=== PATIENT | female | born 1995 | race Caucasian/White ===

== ENCOUNTER 2017-11-09 10:30 | Outpatient (RCR) | payer OTHER, SELFPAY | END 2017-11-09 17:08 | disposition home or self-care (01) | LOC: PT 10:30 | PROVIDERS: Family Provider Internal Medicine Adolescent Medicine; PCP Internal Medicine Adolescent Medicine; Visit Provider Internal Medicine Adolescent Medicine | DX: M54.5 Low back pain (principal) | CPT/HCPCS: 97033; 97110; 97163 ==

== ENCOUNTER → 2018-07-26 15:41 | Outpatient (CLI) | payer BC, MEDICAID, SELFPAY ==
[2018-07-26 16:22] LABS: Basophils # 0.1 K/mm3 (0-0.2); Basophils % 0.8 % (0.1-2.0); Eosinophils # 0.1 K/mm3 (0.0-0.4); Eosinophils % 1.7 % (0.1-12.0); Hematocrit 37.5 % (37.0-47.0); Hemoglobin 12.3 g/dL (12.2-16.2); Lymphocytes % 25.1 % (10-50); Mean Corpuscular HGB Conc 32.7 g/dL (31.8-35.4); Mean Corpuscular Hemoglobin 29.8 pg (27.0-31.2); Mean Platelet Volume 7.9 fl (7.4-10.4); Monocytes # 0.5 K/mm3 (0.1-1.0); Monocytes % 6.2 % (1.7-9.3); Neutrophils # 5.2 K/mm3 (1.8-7.8); Neutrophils % 66.2 % (37.0-80.0); Platelet Count 393 K/mm3 (142-424); Red Blood Count 4.12 M/mm3 (4.20-5.40); Red Cell Distribution Width 13.1 % (11.5-17.5); White Blood Count 7.9 K/mm3 (4.8-10.8)
[2018-07-26 17:36] LABS: Alanine Aminotransferase 59 U/L (12-78); Albumin Level 3.6 gm/dL (3.4-5.0); Alkaline Phosphatase 78 U/L (46-116); Aspartate Amino Transferase 23 U/L (15-37); Bilirubin,Total 0.2 mg/dL (0.2-1.0); Blood Urea Nitrogen 14 mg/dL (7-18); Calcium 9.2 mg/dL (8.5-10.1); Carbon Dioxide 24 mmol/L (21.0-32.0); Chloride 104 mmol/L (98-107); Creatinine,Serum 0.52 mg/dL (0.55-1.02); Estimated Glomerular Filt Rate 147 ml/min (>60); Free Thyroxine Index 1.8 ug/dL (5.93-13.13); GFR (African American) 178 ML/MIN (>60); Globulin 3.7 gm/dl (1.3-3.2); Glucose 83 mg/dL (74-106); Sodium 139 mmol/L (136-145); Thyroid Stimulating Hormone 1.75 uIU/ml (0.358-3.740); Total Protein,Serum 7.3 gm/dL (6.4-8.2); Triiodothryronine (T3) Uptake 36 % (31-39)
[2018-07-29 03:44] LABS: Triiodothyronine (T3) Free 2.7 pg/mL (2.0-4.4)
== END ==
PROVIDERS: Visit Provider Nurse Practitioner Obstetrics & Gynecology
DX: R53.82 Chronic fatigue, unspecified (principal); R63.5 Abnormal weight gain
CPT/HCPCS: 36415; 80053; 84436; 84443; 84479; 84481; 85025

== ENCOUNTER → 2019-03-07 16:52 | Outpatient (CLI) | payer BC, OTHER, SELFPAY ==
[2019-03-07 17:26] LABS: Basophils % 0.3 % (0.1-2.0); Eosinophils # 0.1 K/mm3 (0.0-0.4); Eosinophils % 0.9 % (0.1-12.0); Hematocrit 35.2 % (37.0-47.0); Hemoglobin 11.5 g/dL (12.2-16.2); Lymphocytes # 1.3 K/mm3 (0.7-4.5); Lymphocytes % 13.2 % (10-50); Mean Corpuscular HGB Conc 32.8 g/dL (31.8-35.4); Mean Corpuscular Hemoglobin 31.2 pg (27.0-31.2); Mean Platelet Volume 8.5 fl (7.4-10.4); Monocytes # 0.5 K/mm3 (0.1-1.0); Neutrophils % 80.5 % (37.0-80.0); Platelet Count 315 K/mm3 (142-424); Red Blood Count 3.71 M/mm3 (4.20-5.40); Red Cell Distribution Width 13.3 % (11.5-17.5)
[2019-03-09 07:35] LABS: HIV Screen 4th Generation wRfx Non Reactive (Non Reactive); Hepatitis B Surface Antigen Negative (Negative); Hepatitis C Antibody 0.1 s/co ratio (0.0-0.9)
[2019-03-10 18:47] LABS: Rapid Plasma Reagin Ab Titer Non Reactive (NonRea<1:1); Rubella Antibodies, IgG 2.17 index (Immune >0.99)
== END ==
PROVIDERS: Visit Provider Nurse Practitioner Obstetrics & Gynecology
DX: Z34.90 Encounter for supervision of normal pregnancy, unspecified, unspecified trimester (principal)
CPT/HCPCS: 36415; 85025; 86592; 86703; 86762; 86850; 87340; 87380; G0432

== ENCOUNTER → 2019-03-30 12:51 | Outpatient (CLI) | payer BC, OTHER, SELFPAY ==
--- NOTE | 2019-03-30 12:53 | US_ITS ---
PROCEDURE: US OB /MATERNAL DETAIL CLINICAL INDICATION: US OB Complete COMPARISON: OBTV US OB transvaginal from 12/25/2018 FINDINGS: Single viable intrauterine gestation. Cephalic position. Placenta: Anteriorplacenta grade 1. There is average amount fluid. The cervix appears satisfactory. Closed and measuring 3 cm in length. Complete survey performed and was unremarkable on the submitted images as in PACS. No discrete anomalies identified on survey imaging by technologist. Active fetus. Three-vessel cord with satisfactory umbilical cord insertion. 4- chamber heart noted. Survey of brain & ventricles Unremarkable. Face and neck survey unremarkable. Diaphragm and chest views unremarkable. Abdomen: Both kidneys noted and unremarkable. Stomach noted and satisfactory. Spine: Survey of the spine satisfactory with no anomalies identified nor imaged. Both arms and legs noted. Amniotic Fluid: Adequate. Maternal adnexa: No significant findings. Measurements: Average ultrasound age 19 weeks 6 days. Gestational Age 19 weeks 5 days Estimated due date by ultrasound age 0408/18/2019. Estimated weight 315.2 ggrams. Weeks-days BPD = 19-6 OFD = 19-5 HC = 19-0 AC = 19-4 FL = 20-4 Growth Percentile= 52 percentile% Heart Rate = 153 bpm Cerebellum = 20-1 Humerus = 20-1 HC/AC is 1.15 CI is 0.81 FL/BPD is 0.73 FL/AC is 0.24 IMPRESSION: There is a single live fetus which is in cephalic presentation with an average ultrasound age of 19 weeks 6 days. All parameters correlate with no obvious anomalies. Please see above for detail Dictated by: Aaron Walters MD 03/30/2019 18:05 Electronically signed by Aaron Walters MD in [place] 03/30/2019 18:05
== END ==
PROVIDERS: PCP Internal Medicine Adolescent Medicine; Visit Provider Nurse Practitioner Obstetrics & Gynecology
DX: Z36.0 Encounter for antenatal screening for chromosomal anomalies (principal)
CPT/HCPCS: 76811

== ENCOUNTER → 2019-05-15 07:55 | Outpatient (CLI) | payer BC, OTHER, SELFPAY ==
[2019-05-15 08:35] LABS: Glucose,Fasting 90 mg/dL (60-105)
[2019-05-15 09:57] LABS: Glucose 1 Hour 148 mg/dL (74-106)
== END ==
PROVIDERS: Visit Provider Nurse Practitioner Obstetrics & Gynecology
DX: Z34.90 Encounter for supervision of normal pregnancy, unspecified, unspecified trimester (principal)
CPT/HCPCS: 36415; 82951

== ENCOUNTER → 2019-05-22 07:56 | Outpatient (CLI) | payer BC, OTHER, SELFPAY ==
[2019-05-22 08:27] LABS: Glucose,Fasting 86 mg/dL (60-105)
[2019-05-22 09:57] LABS: Glucose 1 Hour 127 mg/dL (74-106)
[2019-05-22 10:54] LABS: Glucose 2 Hour 110 mg/dL (74-106)
[2019-05-22 12:09] LABS: Glucose 3 Hour 102 mg/dL (74-106)
== END ==
PROVIDERS: Visit Provider Nurse Practitioner Obstetrics & Gynecology
DX: Z34.90 Encounter for supervision of normal pregnancy, unspecified, unspecified trimester (principal)
CPT/HCPCS: 36415; 82951

== ENCOUNTER 2019-06-01 14:41 | Outpatient (CLI) | payer BC, OTHER, SELFPAY ==
[2019-06-01 14:51] VITALS: BMI 34.2
[2019-06-01 15:00] VITALS: BP 111/55; PULSE 84; RESP 20; TEMP 36.7; O2SAT 100; BMI 36.3
[2019-06-01 15:01] LABS: Microscopic, Urine URINE MICROSCOPIC (MICROSCOPIC)
[2019-06-01 15:23] LABS: Appearance,Urine SL CLOUDY (Clear); Bilirubin,Urine Negative (Negative); Blood, Urine Negative (Negative); Color,Urine YELLOW (Yellow); Glucose,Urine (UA) Negative (Negative); Ketones,Urine Negative (Negative); Leukocyte Esterase,Urine 1+ (Negative); Nitrate,Urine Negative (Negative); Protein,Urine Negative (Negative); Specific Gravity, Urine 1.025 (1.005-1.030); Urobilinogen,Urine 0.2 EU/dl (0.2)
[2019-06-01 15:34] LABS: Fetal Membrane Rupture (Rapid) Negative (Negative)
[2019-06-01 15:51] LABS: Bacteria,Urine Trace /lpf
[2019-06-01 15:52] LABS: Amphetamine/Metha Screen,Urine Negative ng/mL (<1000); Barbiturates Screen,Urine Negative ng/mL (<200); Benzodiazepines Screen,Urine Negative ng/mL (<200); Cannabinoid Screen,Urine Negative ng/mL (<50); Cocaine Screen,Urine Negative ng/mL (<300); Methadone Screen,Urine Negative ng/mL (<300); Opiate Screen,Urine Negative ng/mL (<300); Phencyclidine Screen,Urine Negative ng/mL (<25)
[2019-06-01 15:57] LABS: Fetal Fibronectin (Rapid) Negative (Negative)
== END 2019-06-01 17:20 | disposition home or self-care (01) ==
LOC: OBOUT 14:42 → OB 14:44
PROVIDERS: PCP Internal Medicine Adolescent Medicine; Visit Provider Nurse Practitioner Obstetrics & Gynecology
DX: O47.03 False labor before 37 completed weeks of gestation, third trimester (principal); Z3A.28 28 weeks gestation of pregnancy; R11.2 Nausea with vomiting, unspecified
CPT/HCPCS: 59025; 80305; 81001; 82731; 84112; 87086; 96365; G0463

== ENCOUNTER 2019-07-09 16:07 | Outpatient (CLI) | payer BC, OTHER, SELFPAY ==
[2019-07-09 16:25] VITALS: BMI 38.6
[2019-07-09 16:27] VITALS: BP 117/73; PULSE 105; RESP 20; TEMP 36.6; O2SAT 96; BMI 38.6
[2019-07-09 16:34] LABS: Microscopic, Urine URINE MICROSCOPIC (MICROSCOPIC)
[2019-07-09 16:44] LABS: Appearance,Urine CLEAR (Clear); Bilirubin,Urine Negative (Negative); Blood, Urine 2+ (Negative); Color,Urine YELLOW (Yellow); Glucose,Urine (UA) Negative (Negative); Ketones,Urine Negative (Negative); Leukocyte Esterase,Urine 1+ (Negative); Nitrate,Urine Negative (Negative); PH,Urine 6.5 (5.0-8.5); Protein,Urine Negative (Negative); Specific Gravity, Urine 1.025 (1.005-1.030); Urobilinogen,Urine 0.2 EU/dl (0.2)
[2019-07-09 16:55] LABS: Bacteria,Urine 2+ /lpf; Mucus,Urine 1+ /lpf; Squamous Epithelial Cell,Urine 20-50 #/hpf (0-5)
[2019-07-09 16:58] LABS: Benzodiazepines Screen,Urine Negative ng/ml (<200)
[2019-07-09 16:59] LABS: Amphetamine/Metha Screen,Urine Negative ng/ml (<1000)
[2019-07-09 17:00] LABS: Barbiturates Screen,Urine Negative ng/ml (<200); Cannabinoid Screen,Urine Negative ng/ml (<50)
[2019-07-09 17:01] LABS: Cocaine Screen,Urine Negative ng/ml (<300); Methadone Screen,Urine Negative ng/ml (<300)
[2019-07-09 17:02] LABS: Opiate Screen,Urine Negative ng/ml (<300)
[2019-07-09 17:03] LABS: Phencyclidine Screen,Urine Negative ng/ml (<25)
== END 2019-07-09 17:15 | disposition home or self-care (01) ==
LOC: OBOUT 16:11 → OB 16:21
PROVIDERS: PCP Internal Medicine Adolescent Medicine; Visit Provider Nurse Practitioner Obstetrics & Gynecology
DX: O47.03 False labor before 37 completed weeks of gestation, third trimester (principal); Z3A.34 34 weeks gestation of pregnancy
CPT/HCPCS: 59025; 80305; 81001; 87086; G0463

== ENCOUNTER 2019-07-16 02:47 | Outpatient (CLI) | payer BC, OTHER, SELFPAY ==
[2019-07-16 02:57] VITALS: BMI 37.5
[2019-07-16 03:07] VITALS: BP 119/51; PULSE 104; RESP 18; TEMP 36.6; O2SAT 96; BMI 37.5
[2019-07-16 04:26] LABS: Microscopic, Urine URINE MICROSCOPIC (MICROSCOPIC)
[2019-07-16 04:30] LABS: Appearance,Urine SL CLOUDY (Clear); Bilirubin,Urine Negative (Negative); Blood, Urine 3+ (Negative); Color,Urine YELLOW (Yellow); Glucose,Urine (UA) Negative (Negative); Ketones,Urine Negative (Negative); Leukocyte Esterase,Urine 1+ (Negative); Nitrate,Urine Negative (Negative); PH,Urine 6.5 (5.0-8.5); Protein,Urine Negative (Negative); Specific Gravity, Urine 1.025 (1.005-1.030); Urobilinogen,Urine 0.2 EU/dl (0.2)
[2019-07-16 04:44] LABS: Barbiturates Screen,Urine Negative ng/ml (<200)
[2019-07-16 04:45] LABS: Amphetamine/Metha Screen,Urine Negative ng/ml (<1000); Benzodiazepines Screen,Urine Negative ng/ml (<200)
[2019-07-16 04:46] LABS: Cannabinoid Screen,Urine Negative ng/ml (<50)
[2019-07-16 04:47] LABS: Cocaine Screen,Urine Negative ng/ml (<300); Methadone Screen,Urine Negative ng/ml (<300)
[2019-07-16 04:48] LABS: Opiate Screen,Urine Negative ng/ml (<300)
[2019-07-16 04:49] LABS: Phencyclidine Screen,Urine Negative ng/ml (<25)
[2019-07-16 04:51] LABS: RBC,Urine 20-50 #/hpf (0-3); Squamous Epithelial Cell,Urine 20-50 #/hpf (0-5); WBC,Urine 20-50 #/hpf (0-3)
== END 2019-07-16 05:45 | disposition home or self-care (01) ==
LOC: OBOUT 02:49 → OB 02:53
PROVIDERS: PCP Internal Medicine Adolescent Medicine; Visit Provider Nurse Practitioner Obstetrics & Gynecology
DX: O47.03 False labor before 37 completed weeks of gestation, third trimester (principal); Z3A.35 35 weeks gestation of pregnancy
CPT/HCPCS: 59025; 80305; 81001; 87086; 96365; 96367; 96372; G0463

== ENCOUNTER 2019-07-16 20:38 | Inpatient (IN) ==
[2019-07-16 22:15] LABS: Amphetamine/Metha Screen,Urine Negative ng/ml (<1000)
[2019-07-16 22:16] LABS: Barbiturates Screen,Urine Negative ng/ml (<200); Benzodiazepines Screen,Urine Negative ng/ml (<200)
[2019-07-16 22:17] LABS: Cannabinoid Screen,Urine Negative ng/ml (<50)
[2019-07-16 22:18] LABS: Cocaine Screen,Urine Negative ng/ml (<300); Methadone Screen,Urine Negative ng/ml (<300)
[2019-07-16 22:19] LABS: Opiate Screen,Urine Negative ng/ml (<300); Phencyclidine Screen,Urine Negative ng/ml (<25)
[2019-07-16 22:26] LABS: Basophils % 0.1 % (0.1-2.0); Eosinophils % 0.1 % (0.1-12.0); Hematocrit 31.8 % (37.0-47.0); Hemoglobin 10.1 g/dL (12.2-16.2); Lymphocytes # 1.3 K/mm3 (0.7-4.5); Lymphocytes % 9.5 % (10-50); Mean Corpuscular HGB Conc 31.6 g/dL (31.8-35.4); Mean Corpuscular Volume 91.3 fl (81-99); Monocytes # 0.6 K/mm3 (0.1-1.0); Neutrophils # 11.9 K/mm3 (1.8-7.8); Neutrophils % 86.3 % (37.0-80.0); Platelet Count 334 K/mm3 (142-424); Red Blood Count 3.48 M/mm3 (4.20-5.40); White Blood Count 13.8 K/mm3 (4.8-10.8)
[2019-07-16 22:37] LABS: Anion Gap 14.7 mEq/L (5-15); Calcium 9.2 mg/dl (8.4-10.2)
[2019-07-16 22:47] LABS: Lymphocytes % 13 % (10-50); Monocytes % 6 % (2-9); Neutrophils % 81 % (42-76); RBC Morphology Normal; Total Cells Counted 100
--- NOTE | 2019-07-16 22:52 | History & Physical Report ---
OB - H&P: HPI Antepartum - History of Present Illness Chief complaint: vaginal bleeding History of present illness: 24 yo @ 35 06/22 presented for evaluation of moderate vaginal bleeding. She reports softball size clot passed at home, along with contractions. Upon presentation, she was having moderate bleeding and kathy q 2-3 minutes. No LOF. Cervix noted to change from 3cm this am to 4-5cm this evening. She had been evaluated the night before for contractions and was treated with brethine and celestone, and discharged home after contractions abated. [facility] History I have reviewed the patient's past medical history: Yes Medical History: Reports:: Depression Denies:: Anxiety, Cancer, Diabetes Mellitus Type 1, Diabetes Mellitus Type 2, MRSA, Seizures *Have you ever received a pneumonia vaccine?: No *Have you received a flu vaccine this season?: No Other Surgeries: Yes: Cholecystectomy, , Tubal Ligation Amputation: No Fractures: No - *Social History Smoking Status: Never smoker Alcohol Intake: never Alcohol Intake Frequency:: holidays/special occasions only Substance Use Type: denies use *Occupational Status:: unemployed Household Members: spouse, family *Travel in the last 8 weeks: None - Psychiatric History Pschychiatric History:: Reports:: Depression Denies:: Anxiety Family Hx:: Cancer, Diabetes, Heart Attack, Stroke, Hypertension Para: 2 Review of Systems - Review of Systems CONSTITUTIONAL: no fever/chills HEENT: no oral lesions PULMONARY: no shortness of breath or difficulty breathing CV: no racing heart, palpitations or chest pain ABD: no abdominal pain, N/V : + vaginal bleeding, + contractions SKIN: no new rash or skin lesions EXT: no edema NEURO: no mental status changes PSYCH: + depression, stable on prozac OB: normal movement Meds Home Medications Medication Instructions Recorded Confirmed Type promethazine 12.5 mg tablet 12.5 mg PO Q4-6H PRN #30 tab 02/06/19 07/16/19 Rx Fluoxetine HCl 40 mg PO DAILY 07/16/19 07/16/19 History Pediatric Multivitamin No.49 2 tab PO DAILY 07/16/19 07/16/19 History [Flintstones Gummies] Allergies Allergy/AdvReac Type Severity Reaction Status Date / Time No Known Drug Intolerances Allergy Unknown NA Verified 07/03/19 11:32 OB - H&P: Exam - Physical Exam Vital signs: Temp Pulse Resp BP Pulse Ox 97.4 F L 77 20 127/73 97 07/16/19 21:21 07/16/19 21:21 07/16/19 21:21 07/16/19 21:21 07/16/19 21:21 Narrative: CONSTITUTIONAL: no acute distress HEENT: mucous membranes moist PULMONARY: breathing unlabored without audible wheezes CV: no tachycardia or visible JVD; normal LE peripheral pulses ABD: soft, NT/ND, no guarding. Gravid uterus. : cervix 4-5/90/-2 SKIN: no visible rash or lesions HEME: no lymphadenopathy EXT: 1+ edema LEs NEURO: alert/oriented, no altered mental status PSYCH: appropriate mood and demeanor without visible anxiety/depression NST: Basline: 140 Variability: moderate Accelerations: yes Decelerations: no Impression: Reactive, Category 1 OB - Results - Labs Labs: Short CBC 07/16/19 Range/Units 22:14 WBC 13.8 H (4.8-10.8) K/mm3 Hgb 10.1 L (12.2-16.2) g/dL Hct 31.8 L (37.0-47.0) % Plt Count 334 (142-424) K/mm3 BMP 07/16/19 22:14 Sodium 134 L Potassium 3.7 Chloride 102 Carbon Dioxide 21 L BUN 4 L Creatinine 0.40 L Glucose 77 Calcium 9.2 OB - A/P Antepartum (1) 35 weeks gestation of Current visit: Yes Status: Acute (2) labor Current visit: Yes Status: Acute (3) Placental abruption Current visit: Yes Status: Acute (4) Previous section Current visit: Yes Status: Acute - Additional Plan Additional Information:: Admitted for immediate delivery S/P celestone x 1 dose Ancef 2gm to be given preop status reassuring Placenta to be sent to pathology
--- NOTE | 2019-07-17 00:09 | Operative Note ---
Date of procedure: 07/17/19 Pre-op Diagnosis:: 1. 35 2/7 weeks gestation 2. Previous CS 3. labor 4. Suspected abruption 5. Chronic anemia Post-op Diagnosis:: 1. 35 2/7 weeks gestation 2. Previous CS 3. labor 4. Suspected abruption 5. Chronic anemia 6. Pelvic adhesions Procedure performed:: Repeat Low Transverse C Section Surgeon:: Cele Davis MD Lap Regulator(s):: Dr. Chopra PARKING LOT SPOTTER:: Donald Colin Anesthesia: spinal Estimated blood loss (mL): 800 Operative findings:: Liveborn female in cephalic presentation Suspected placental abruption Operative note:: The patient was taken to the OR and spinal was administered without difficulty. She was prepped and draped in normal sterile fashion. A pfannenstiel skin incision was made with the scalpel and carried down to the fascia. The fascia was incised in the midline and sharply dissected off the rectus muscles. The muscles were in the midline and the peritoneum was entered sharply and extended bluntly. The Jose-O self retaining retractor was placed in the abdomen and a bladder flap was created. The uterus was incised in the lower uterine segment in a transverse fashion and extended bluntly. Amniotomy was performed and clear fluid noted. The infant was delivered in controlled fashio n, without complication or shoulder dystocia. The infant was vigorous at and handed to awaiting chief guard and nursing staff for evaluation after cord clamped and cut. Cord blood was collected and a cord segment was preserved. The placenta was manually extracted and noted to be intact; placenta was sent for pathology. The uterus was repaired with 0-vicryl in a running/locked fashion, in 2 layers. The bladder flap was closed with 3-0 vicryl. The peritoneum was closed with 2-0 vicryl in a running fashion. The fascia was closed with #1 vicryl in a running fashion. The subcutaneous fat was closed with 2-0 vicryl in an interrupted fashion. The skin was closed with shakir. The patient tolerated the procedure well. Sponge, lap, needle and instrument counts were correct x 2. EBL: 800cc. She was taken to PACU awake and in stable condition. Condition: stable Disposition: PACU Specimens:: Placenta to pathology Complications:: None
--- NOTE | 2019-07-17 00:18 | Progress Note ---
[facility] Anesthesia Checklist - Patient Identification Patient Identification: Arm Band, Verbal (Name & ) - Structural Data Admitted From: Inpatient Planned Operative Procedure/s: c section Consent for Planned Operative Procedure(s) Verified: Yes Verified Documents: History and Physical - NPO Status Verified Time NPO: 12:00 - Chart Verification Results Verified: CBC, BMP - Additional verifications Patient : Yes Anesthesia Reactions: No Hx Blood Transfusions: No Blood Transfusion Reaction: No Cephalosporin Allergy: No Previous Colonoscopy: No - Cardiovascular Assessment Heart Sounds: S1 & S2 Pulse Strength: Baseline Pulse Rhythm: Regular Peripheral Edema: No - Airway Assessment C-Spine Mobility Assessed: Yes TMJ Mobility Assessed: Yes Dentition: Good Dentition - Neurological Assessment Level of Consciousness: Awake, Alert, Appropriate Hx Seizures: No Numbness or tingling in extremities: No - Anesthesia Plan Anesthesia Risk discussed: Yes Anesthesia Plan: Verified ASA Class: II Anesthesia Type: Spinal [facility] History I have reviewed the patient's past medical history: Yes Medical History: Reports:: Depression Denies:: Anxiety, Cancer, Diabetes Mellitus Type 1, Diabetes Mellitus Type 2, MRSA, Seizures *Have you ever received a pneumonia vaccine?: No *Have you received a flu vaccine this season?: No Anesthesia experience/problems:: none Other Surgeries: Yes: Cholecystectomy, , Tubal Ligation Amputation: No Fractures: No - *Social History Smoking Status: Never smoker Alcohol Intake: never Alcohol Intake Frequency:: holidays/special occasions only Substance Use Type: denies use *Occupational Status:: unemployed Household Members: spouse, family *Travel in the last 8 weeks: None - Psychiatric History Pschychiatric History:: Reports:: Depression Denies:: Anxiety Family Hx:: Cancer, Diabetes, Heart Attack, Stroke, Hypertension Para: 2
--- NOTE | 2019-07-17 00:20 | Progress Note ---
[facility] Anesthesia Record Part I Intake, IV Amount: 1,250 Estimated blood loss (mL): 800 Urine output (mL): 50 Blood Pressure: 100/44 SaO2: 100 Pulse Rate: 96 Respiratory Rate: 20 Temperature: 97.1 F Patient is:: Awake, Stable Stable to PACU at:: 00:14
[2019-07-17 04:15] LABS: Hematocrit 27.1 % (37.0-47.0)
[2019-07-17 04:17] LABS: Hemoglobin 8.4 g/dL (12.2-16.2)
--- NOTE | 2019-07-17 08:09 | Pharmacy Consult Notes ---
[facility] Pharmacy VTE Monitoring - Patient Demographics Admission date: 07/16/19 Report Date: 07/17/19 Time: 08:09 Allergies/Adverse Reactions: Patient Allergies No Known Drug Intolerances Allergy (Unknown, Verified 07/03/19 11:32) NA Height: 1.63 m Weight: 101.605 kg Patient Problems: Current Active Problems Anemia complicating (Acute) Previous section (Acute) labor (Acute) Placental abruption (Acute) 35 weeks gestation of (Acute) - VTE Risk Labs: VTE Related Lab Results Hgb 8.4 g/dL (12.2-16.2) L D 07/17/19 04:05 Hct 27.1 % (37.0-47.0) L 07/17/19 04:05 Plt Count 334 K/mm3 (142-424) 07/16/19 22:14 BUN 4 mg/dl (7-17) L 07/16/19 22:14 Creatinine 0.40 mg/dl (0.52-1.04) L 07/16/19 22:14 Estimated Creat Clear 351 mL/min (50-200) H 07/16/19 22:14 - Prophylaxis VTE Prophylaxis Ordered?: Yes Types of VTE Prophylaxis: IPCS Thigh High Location of Applied Device: Bilateral Lower Extremeties - VTE Diagnosis Confirmed Treatment or plan recommended: Continue Current Treatment
--- NOTE | 2019-07-17 08:15 | Progress Note ---
Internal Medicine - PN: Subj *Date: 07/17/19 *Time: 08:14 Interval history: She is doing very well this morning. She is eating and drinking and ambulating. She is bottlefeeding. Her hemoglobin was slightly low so we will go ahead and repeat it again around noon. Her color looks good. Exam Vital signs and Labs for Last 24 Hours: Temp Pulse Resp BP Pulse Ox 97.5 F L 80 20 106/54 L 100 07/17/19 00:44 07/17/19 00:44 07/17/19 00:44 07/17/19 00:44 07/17/19 00:44 Laboratory Results - last 24 hr 07/16/19 21:26: Urine Opiates Screen Negative, Urine Methadone Screen Negative, Ur Barbituates Screen Negative, Ur Phencyclidine Scrn Negative, Ur Amphetamines Screen Negative, U Benzodiazepines Scrn Negative, Urine Cocaine Screen Negative, U Marijuana (THC) Screen Negative 07/16/19 22:14: WBC 13.8 H, RBC 3.48 L, Hgb 10.1 L, Hct 31.8 L, MCV 91.3, MCH 28.9, MCHC 31.6 L, RDW 14.0, Plt Count 334, MPV 9.0, Neut % (Auto) 86.3 H, Lymph % (Auto) 9.5 L, [place] % (Auto) 4.0, Eos % (Auto) 0.1, Baso % (Auto) 0.1, Neut # (Auto) 11.9 H, Lymph # (Auto) 1.3, [place] # (Auto) 0.6, Eos # (Auto) 0.0, Baso # (Auto) 0.0, Total Counted 100, Neutrophils % (Manual) 81 H, Lymphocytes % (Manual) 13, Monocytes % (Manual) 6, Platelet Estimate Normal, RBC Morphology Normal 07/16/19 22:14: Sodium 134 L, Potassium 3.7, Chloride 102, Carbon Dioxide 21 L, Anion Gap 14.7, BUN 4 L, Creatinine 0.40 L, Estimated Creat Clear 351 H, Estimated GFR 198, Est GFR ( Amer) 239, Glucose 77, Calcium 9.2 07/16/19 22:14: Blood Type A Positive, Antibody Screen Negative 07/17/19 04:05: Hgb 8.4 L D, Hct 27.1 L I & O for Last 24 hours: Intake & Output 07/14/19 07/15/19 07/16/19 07/17/19 11:59 11:59 11:59 11:59 Intake Total 1375 / 1375 Output Total 100 / 100 Balance 1275 / 1275 Weight 224 lb - Constitutional no acute distress Assessment and Plan (1) 35 weeks gestation of Current visit: Yes Status: Acute Category: Medical Code(s): Z3A.35 - 35 weeks gestation of (2) labor Current visit: Yes Status: Acute Category: Medical Code(s): O60.00 - labor without delivery, unspecified trimester (3) Placental abruption Current visit: Yes Status: Acute Category: Medical Code(s): O45.90 - Premature separation of placenta, unspecified, unspecified trimester (4) Previous section Current visit: Yes Status: Acute Category: Surgical Code(s): Z98.891 - History of uterine scar from previous surgery - Assessment and plan all Dx Assessment and Plan for all problems:: She is doing well this morning. Her lochia is normal. She is bottlefeeding. We will repeat her blood work at noon today.
--- NOTE | 2019-07-17 10:03 | Progress Note ---
[facility] Anesthesia Record Part II Discharge Time: 00:44 Destination: Obstetric PACU nurse assessment reviewed?: Yes Patient Condition:: Good Anesthesia Complications:: None Swallowing reflex intact?: Yes Cyanosis?: No Blood Pressure: 106/54 Pulse Rate: 80 Temperature: 97.5 F Mental Status: Alert & Oriented Pain level:: 0 Nausea and/or vomitting:: None Intake, IV Amount: 0 Comments:: RR 20, O2sat 100% on RA
[2019-07-17 12:20] LABS: Hematocrit 25.1 % (37.0-47.0)
[2019-07-17 12:25] LABS: Hemoglobin 8.1 g/dL (12.2-16.2)
[2019-07-18 07:39] LABS: Hematocrit 23.8 % (37.0-47.0); Hemoglobin 7.5 g/dL (12.2-16.2)
--- NOTE | 2019-07-18 08:30 | Progress Note ---
Internal Medicine - PN: Subj *Date: 07/18/19 *Time: 08:29 Interval history: She is doing well this morning although she has had a slight headache overnight. Her hemoglobin has dropped to 7.5. As result of that we are going to go ahead and transfuse her 1 unit of packed red blood cells. She otherwise feels well. Her blood pressure is normal. Exam Vital signs and Labs for Last 24 Hours: Temp Pulse Resp BP Pulse Ox 97.4 F L 89 18 108/52 L 95 07/17/19 16:10 07/17/19 16:10 07/17/19 16:10 07/17/19 16:10 07/17/19 16:10 Laboratory Results - last 24 hr 07/17/19 12:10: Hgb 8.1 L, Hct 25.1 L 07/18/19 06:48: Hgb 7.5 L*, Hct 23.8 L* I & O for Last 24 hours: Intake & Output 07/15/19 07/16/19 07/17/19 07/18/19 11:59 11:59 11:59 11:59 Intake Total 1375 / 1375 Output Total 100 / 100 Balance 1275 / 1275 Weight 224 lb - Constitutional no acute distress - *Routine HEENT Exam Head: Present: normocephalic Eye: Present: EOMI, PERRL ENT: Present: mucous membranes moist Assessment and Plan (1) 35 weeks gestation of Current visit: Yes Status: Acute Category: Medical Code(s): Z3A.35 - 35 weeks gestation of (2) labor Current visit: Yes Status: Acute Category: Medical Code(s): O60.00 - labor without delivery, unspecified trimester (3) Placental abruption Current visit: Yes Status: Acute Category: Medical Code(s): O45.90 - Premature separation of placenta, unspecified, unspecified trimester (4) Previous section Current visit: Yes Status: Acute Category: Surgical Code(s): Z98.891 - History of uterine scar from previous surgery (5) anemia Current visit: Yes Status: Acute Category: Medical Code(s): O90.81 - Anemia of the puerperium - Assessment and plan all Dx Assessment and Plan for all problems:: She has had a headache overnight and her blood pressure is normal. Her hemoglobin has dropped from 8.1-7.5. Since she has some symptoms of a headache we will go ahead and transfuse her 1 unit. We will plan to send her home in 48 hours.
[2019-07-18 12:40] LABS: Hematocrit 26.7 % (37.0-47.0)
[2019-07-18 12:42] LABS: Hemoglobin 8.3 g/dL (12.2-16.2)
--- NOTE | 2019-07-19 08:20 | Discharge Summary ---
General - General Admission date:: 07/16/19 Discharge date: 07/20/19 HPI HPI: She is a 24-year-old 3 now para 3 at 35 weeks gestational age. She came in having contractions and having had passed a softball size clot. She had been 3 cm the day before and she was 5 to 6 cm on arrival. She had had 2 previous sections. She also was bleeding moderately on arrival and an abruption was suspected. As result of that she was taken for an urgent primary lower segment transverse section. Hospital Course Hospital Course: She was taken for an urgent repeat lower segment transverse section on the evening of July 16, 2019. She delivered a liveborn female child at 11:23 PM. The baby weighed 5 pounds 6 ounces and was 17 three-quarter inches long. She had Apgars of 4 at 1 minute 6 at 5 minutes and 7 at 10 minutes. She lost approximately 800 cc of blood during the surgery and had previously lost a significant amount of blood prior to surgery. She has done well postoperatively and has remained afebrile throughout her hospitalization. She is eating and drinking and ambulating. She is bottlefeeding. Initially her hemoglobin was just above 8 and then it had dropped to 7.5. As result of that we elected to transfuse her 1 unit of blood. Her hemoglobin is now 8.5. She does complain of a mild headache in the frontal area and this has not seemed to have gone away. We had her evaluated by anesthesia and they did not feel that it was a spinal headache. We will have her seen by Dr. Baker today. She does have a history of headaches. Her blood pressure has been completely normal. She will be discharged home to follow-up with me in approximately 2 weeks time. She will continue with her vitamins and iron. She was given a prescription for Percocet 5/325 number 20 tablets. She was given these instructions with respect to limiting her activity, driving and sexual activity. Rhogam Administration: Not Indicated Objective Vital signs: Temp Pulse Resp BP Pulse Ox 98.3 F 86 18 119/62 95 07/19/19 04:35 07/19/19 04:35 07/19/19 04:35 07/19/19 04:35 07/19/19 04:35 no acute distress - *Routine HEENT Exam Head: Present: normocephalic Eye: Present: EOMI, PERRL ENT: Present: mucous membranes moist Results Labs on day of discharge: Labs from last 24 hours 07/18/19 07/16/19 12:18 22:14 Hgb 8.3 L D Hct 26.7 L Blood Type A Positive Antibody Screen Negative Crossmatch (AHG) See Detail DS: Diagnosis - Discharge Diagnosis (1) 35 weeks gestation of Status: Acute (2) labor Status: Acute (3) Placental abruption Status: Acute (4) Previous section Status: Acute (5) anemia Status: Acute Discharge Plan - Patient Discharge Instructions ACTIVITY: No heavy lifting DIET: continue same diet Additional Instructions: no heavy lifting, no driving for 2 weeks or while taking prescription narcotics, nothing in the vagina for 6 weeks. Patient Instructions: Depression, Hemorrhage, DI for , DI for Surgical Site Infection, DI for Postoperative Pain, [facility] Post Discharge Instructions - Follow up Plan Follow up with: Wai Christensen MD [Staff Physician] - Disposition: Home, Self-[facility]ci Medications: Home Medications Medication Instructions Recorded Confirmed Type promethazine 12.5 mg tablet 12.5 mg PO Q4-6H PRN #30 tab 02/06/19 07/17/19 Rx Fluoxetine HCl 40 mg PO DAILY 07/16/19 07/17/19 History Pediatric Multivitamin No.49 2 tab PO DAILY 07/16/19 07/17/19 History [Flintstones Gummies] Oxycodone HCl/Acetaminophen 1 tab PO Q6H PRN #20 tablet 07/19/19 Rx [Percocet 5/325mg tablet] Prescriptions/Medication Reconciliation: New Oxycodone HCl/Acetaminophen [Percocet 5/325mg tablet] 1 tab PO Q6H PRN #20 tablet PRN Reason: Severe Pain Continued promethazine 12.5 mg tablet 12.5 mg PO Q4-6H PRN #30 tab PRN Reason: nausea and vomiting Pediatric Multivitamin No.49 [Flintstones Gummies] 2 tab PO DAILY Fluoxetine HCl 40 mg PO DAILY - Problem Reconciliation Problems Reviewed?: Yes
--- NOTE | 2019-07-19 14:13 | Progress Note ---
Internal Medicine - PN: Subj *Date: 07/19/19 *Time: 13:30 Interval history: Mrs. Matthews is a pleasant 24-year-old female who is , delivered emergently due to placental abruption 3 days ago. She has been doing well from a standpoint other than onset of headache beginning Tuesday. Of note she has a history of headaches occurring many days a week. She takes Tylenol regularly with no significant benefit. Current headache is been present since her surgery and spinal. Over the past few days she has tried laying supine to see if this improves her headache, is staying well-hydrated with good urine output, having regular bowel movements. Has had no change in her headache. States it is her whole head and between a throb and an ache. Denies any trauma to her head. Denies any photophobia, phonophobia, nausea, vomiting. Took medication earlier today with minimal benefit. Denies shortness of breath, chest pain. Complains of some abdominal pain with her incision site States it is been about 3 years since having her vision checked for change in prescription. Denies significant blurring however. States she does have some trouble with night driving however. Medicine consulted to assist with headache Exam Vital signs and Labs for Last 24 Hours: Temp Pulse Resp BP Pulse Ox 98.3 F 86 18 119/62 95 07/19/19 04:35 07/19/19 04:35 07/19/19 04:35 07/19/19 04:35 07/19/19 04:35 I & O for Last 24 hours: Intake & Output 07/16/19 07/17/19 07/18/19 07/19/19 23:59 23:59 23:59 23:59 Intake Total 1375 / 1375 250 / 250 720 / 720 Output Total 100 / 100 Balance 1275 / 1275 250 / 250 720 / 720 Weight 101.605 kg - *Routine HEENT Exam Head: Present: normocephalic Eye: Present: EOMI, PERRL ENT: Present: mucous membranes moist - *Routine Neck Exam Present: supple. Absent: lymphadenopathy - *Routine Respiratory Exam Present: CTA bilaterally - *Routine Cardiovascular Exam Present: RRR - *Routine Abdominal Exam Present: soft, normoactive bowel sounds, tenderness (mild lower abdominal tenderness) - *Routine Extremities Exam Absent: cyanosis, clubbing, edema - *Routine Skin Exam Present: warm. Absent: rash - *Routine Neurological Exam Present: alert, oriented X3, vision grossly intact Assessment and Plan (1) 35 weeks gestation of Current visit: Yes Status: Acute Category: Medical Code(s): Z3A.35 - 35 weeks gestation of (2) labor Current visit: Yes Status: Acute Category: Medical Code(s): O60.00 - labor without delivery, unspecified trimester (3) Placental abruption Current visit: Yes Status: Acute Category: Medical Code(s): O45.90 - Premature separation of placenta, unspecified, unspecified trimester (4) Previous section Current visit: Yes Status: Acute Category: Surgical Code(s): Z98.891 - His tory of uterine scar from previous surgery (5) anemia Current visit: Yes Status: Acute Category: Medical Code(s): O90.81 - Anemia of the puerperium (6) Headache Current visit: Yes Status: Acute Qualifiers: Headache type: unspecified Category: Medical Code(s): R51 - Headache - Assessment and plan all Dx Assessment and Plan for all problems:: 24-year-old G3, P3 female with several days of headache present upon waking. Headache suspicious for tension type versus spinal related headache. Continue fluid rehydration. Recommend Fioricet as needed every 6-8 hours. May benefit from adjustment to meds in the outpatient setting. No emergent need for imaging at this time. Appreciate the opportunity to consult on this patient.
[2019-07-20 08:49] VITALS: BP 103/60
--- NOTE | 2019-07-20 10:37 | Progress Note ---
Internal Medicine - PN: Subj *Date: 07/20/19 *Time: 10:35 Interval history: POD #4 repeat LTCS Discharge arranged for today per Dr. Christensen No new complaints Exam Vital signs and Labs for Last 24 Hours: Temp Pulse Resp BP Pulse Ox 98.1 F 84 17 103/60 L 98 07/20/19 08:20 07/20/19 08:20 07/20/19 08:20 07/20/19 08:20 07/20/19 08:20 I & O for Last 24 hours: Intake & Output 07/17/19 07/18/19 07/19/19 07/20/19 11:59 11:59 11:59 11:59 Intake Total 1375 / 1375 250 / 250 720 / 720 Output Total 100 / 100 Balance 1275 / 1275 250 / 250 720 / 720 Weight 224 lb Narrative: CONSTITUTIONAL: no acute distress HEENT: mucous membranes moist PULMONARY: breathing unlabored without audible wheezes CV: no tachycardia or visible JVD; normal LE peripheral pulses ABD: soft, ND; appropriately tender but no rebound/guarding : fundus firm at/below umbilicus SKIN: incision well approximated with no drainage, erythema or induration EXT: 1+ edema LEs NEURO: alert/oriented, no altered mental status PSYCH: appropriate mood and demeanor without anxiety/depression Assessment and Plan (1) 35 weeks gestation of Current visit: Yes Status: Acute Category: Medical Code(s): Z3A.35 - 35 we eks gestation of (2) labor Current visit: Yes Status: Acute Category: Medical Code(s): O60.00 - labor without delivery, unspecified trimester (3) Placental abruption Current visit: Yes Status: Acute Category: Medical Code(s): O45.90 - Premature separation of placenta, unspecified, unspecified trimester (4) Previous section Current visit: Yes Status: Acute Category: Surgical Code(s): Z98.891 - History of uterine scar from previous surgery (5) anemia Current visit: Yes Status: Acute Category: Medical Code(s): O90.81 - Anemia of the puerperium (6) Headache Current visit: Yes Status: Acute Qualifiers: Headache type: unspecified Category: Medical Code(s): R51 - Headache - Assessment and plan all Dx Assessment and Plan for all problems:: Discharge home, per previous arrangements F/U with Dr. Christensen 2 wks
== END 2019-07-20 11:00 | disposition home or self-care (01) | DRG 786 ==
LOC: OBOUT 20:38 → OB 20:43
PROVIDERS: ADMIT Obstetrics & Gynecology; ATTEND Nurse Practitioner Obstetrics & Gynecology
CPT/HCPCS: 36415; 59025; 80048; 80305; 85007; 85014; 85018; 85025; 86850; 96372; J2405; P9016

== ENCOUNTER → 2019-07-31 15:56 | Outpatient (CLI) | payer BC, OTHER, SELFPAY ==
[2019-07-31 16:22] LABS: Basophils # 0.1 K/mm3 (0-0.2); Basophils % 0.8 % (0.1-2.0); Eosinophils # 0.2 K/mm3 (0.0-0.4); Eosinophils % 1.9 % (0.1-12.0); Hematocrit 36.1 % (37.0-47.0); Lymphocytes # 2.3 K/mm3 (0.7-4.5); Mean Corpuscular HGB Conc 30.6 g/dL (31.8-35.4); Mean Corpuscular Hemoglobin 27.7 pg (27.0-31.2); Mean Corpuscular Volume 90.5 fl (81-99); Mean Platelet Volume 8.6 fl (7.4-10.4); Monocytes # 0.5 K/mm3 (0.1-1.0); Neutrophils # 4.7 K/mm3 (1.8-7.8); Neutrophils % 61.3 % (37.0-80.0); Platelet Count 519 K/mm3 (142-424); Red Blood Count 3.99 M/mm3 (4.20-5.40); Red Cell Distribution Width 13.7 % (11.5-17.5); White Blood Count 7.7 K/mm3 (4.8-10.8)
== END ==
PROVIDERS: Visit Provider Nurse Practitioner Obstetrics & Gynecology
DX: O90.81 Anemia of the puerperium (principal)
CPT/HCPCS: 36415; 85025

== ENCOUNTER 2020-07-13 12:20 | Emergency (ER) | payer BC, OTHER, SELFPAY ==
[2020-07-13 12:25] VITALS: BP 108/70; PULSE 103; RESP 14; TEMP 36.1; O2SAT 98; BMI 38.9
[2020-07-13 12:41] LABS: UTC Strep Screen (Rapid) Positive (Negative)
--- NOTE | 2020-07-13 12:48 | HMH.EDUTC ---
[facility] [place] Disposition Clinical Impression: Strep throat Disposition: Home, Self-Care Condition on Discharge: Good Instructions: Strep Throat, DI for Strep Throat Additional Instructions: Drink plenty of fluids. Take tylenol or ibuprofen for pain or fever. Take the medications as directed. Follow up with your regular doctor. GO TO THE ER FOR ANY WORSENING SYMPTOMS Don't start the oral steroids (prednisone) until tomorrow, since you had the shot here today. Prescriptions: predniSONE [Deltasone 10mg tablet] 10 mg PO BID 3 Days #6 tab Transmission Status: Received by [facility] Referrals: Donald Gonzalez MD [Primary Care Provider] - Forms: Work/School Release Time of Disposition: 13:12 Medical Decision Making - Medical Records Medical records reviewed: No: I reviewed the patient's medical records. - Jose Inquiry Pt receiving controlled substance: No Vital Signs: 07/13/20 12:25 07/13/20 13:13 Temperature 97.0 F L 97.0 F L Temperature Source Temporal Artery Scan Pulse Rate 103 H Pulse Rate [Right Brachial] 103 H Respiratory Rate 14 14 Blood Pressure 108/70 L Blood Pressure [Right Arm] 108/70 L Blood Pressure Mean [Right Arm] 82 Blood Pressure Source [Right Arm] Automatic Cuff Blood Pressure Position [Right Arm] Sitting 02 Sat by Pulse Oximetry 98 Oxygen Delivery Method Room Air - Lab Data Lab results reviewed: Yes: I reviewed the patient's lab results. Lab Results 07/13/20 12:39: Strep Scn Rapid Clinic Positive A Orders (Tests/Meds): ED MEDICATIONS Discontinued Medications Generic Name Dose Route Start Last Admin Trade Name Shahzad PRN Reason Stop Dose Admin Methylprednisolone Sodium Succinate 125 mg 07/13/20 12:48 07/13/20 13:05 Methylprednisolone Sod Succ 125mg Vial IM 07/13/20 12:49 125 mg ONCE ONE Administration Penicillin G Benzathine 1,200,000 unit 07/13/20 12:48 07/13/20 13:05 Penicillin G Benzathine 1,200,000 Units/2ml Syringe IM 07/13/20 12:49 1,200,000 unit ONCE ONE Administration Protocol ORDERS Category Date Time Status Covid-19 Nasal PCR ([facility]) Routine Lab 07/13/20 12:21 Received [facility] [place] HPI - General Stated complaint: loss of taste and smell,headache Time Seen by Provider: 07/13/20 12:48 Mode of Arrival: Ambulatory Source of Information: Patient Limitations: No Limitations Description of Symptoms (Recalled from Triage Doc. by RN): [place] C/O SORE THROAT SINCE TUESDAY NIGHT, HEADACHE, BODY ACHES, AND NO TASTE OR SMELL. RETURNED FROM [place] YESTERDAY HEENT Symptoms (Recalled from RN notes): Yes Resp Symptoms (Recalled from RN notes): No Skin Symptoms (Recalled from RN notes): No MS Symptoms (Recalled from RN notes): No Functional Status (Recalled from RN notes): WNL - History of Present Illness Provider Complaint: She c/o sore throat for the past 2 days. She also has had a head ache, chills and a very poor appetite. - Related Data Previous Rx's Medication Instructions Recorded fluoxetine 40 mg capsule 40 mg PO DAILY #30 cap 08/21/19 predniSONE [Deltasone 10mg tablet] 10 mg PO BID 3 Days #6 tab 07/13/20 Allergies Allergy/AdvReac Type Severity Reaction Status Date / Time No Known Drug Intolerances Allergy Unknown NA Verified 05/01/20 17:51 - Worker's Comp Is this a Worker's Comp case?: No [facility] History - Hepatitis A Screen Drug use history?: No High risk sexual behaviors?: No History of sexually transmitted infection?: No Currently employed?: No Childcare worker?: No Do you have indoor plumbing?: Yes Do you have electricity?: Yes Attestation statement:: This patient has been screened for Hepatitis A risk factors. I have reviewed the patient's past medical history: Yes Medical History: Reports:: Depression Denies:: Anxiety, Cancer, Diabetes Mellitus Type 1, Diabetes Mellitus Type 2, MRSA, Seizures Other Medical History: Denies: Blood Transfusion Reaction
[2020-07-13 13:13] VITALS: BP 108/70; PULSE 103; RESP 14; TEMP 36.1; O2SAT 98
== END 2020-07-13 13:15 | disposition home or self-care (01) ==
PROVIDERS: Emergency Provider Nurse Practitioner Family; PCP Internal Medicine Adolescent Medicine
DX: Z20.822 Contact with and (suspected) exposure to COVID-19 (principal); J02.0 Streptococcal pharyngitis; F32.9 Major depressive disorder, single episode, unspecified
CPT/HCPCS: 87880; 96372; 99202; G0463; J0561; U0003

== ENCOUNTER → 2020-10-21 13:39 | Outpatient (CLI) | payer BC, OTHER, SELFPAY ==
--- NOTE | 2020-10-21 13:45 | XR_ITS ---
PROCEDURE: XR WRIST LT MIN 3V CLINICAL INDICATION: LT WRIST PAIN COMPARISON: CR WRL3 WRIST-3 VIEWS-LT from 01/23/2016 FINDINGS: No fracture or dislocation. No lytic or blastic change. There is normal mineralization. The joint spaces are well-preserved. No significant degenerative/arthritic changes. No erosive changes evident. Other findings:None. IMPRESSION: No acute findings. Dictated by: Aaron Walters MD 10/21/2020 14:03 Aaron Walters MD in [place] 10/21/2020 14:03
== END ==
PROVIDERS: PCP Internal Medicine Adolescent Medicine; Visit Provider Internal Medicine Adolescent Medicine
DX: M25.532 Pain in left wrist (principal)
CPT/HCPCS: 73110

== ENCOUNTER → 2021-02-24 17:04 | Outpatient (CLI) | payer BC, OTHER, SELFPAY | PROVIDERS: PCP Internal Medicine Adolescent Medicine; Visit Provider Nurse Practitioner | DX: Z20.822 Contact with and (suspected) exposure to COVID-19 (principal) | CPT/HCPCS: C9803; U0003; U0005 ==

== ENCOUNTER → 2021-03-10 10:25 | Outpatient (CLI) | payer BC, OTHER, SELFPAY ==
[2021-03-11 08:14] LABS: HIV Screen 4th Generation wRfx Non Reactive (Non Reactive)
[2021-03-11 10:12] LABS: HSV 1 IgG, Type Spec <0.91 index (0.00-0.90); HSV 2 IgG, Type Spec <0.91 index (0.00-0.90)
[2021-03-11 11:21] LABS: Rapid Plasma Reagin Ab Titer Non Reactive (NonRea<1:1)
[2021-03-11 12:31] LABS: Hep A Ab, IgM Negative (Negative); Hepatitis B Core Antibody IgM Negative (Negative); Hepatitis B Surface Antigen Negative (Negative); Hepatitis C Antibody <0.1 s/co ratio (0.0-0.9)
== END ==
PROVIDERS: Visit Provider Nurse Practitioner Obstetrics & Gynecology
DX: R10.2 Pelvic and perineal pain (principal); Z72.51 High risk heterosexual behavior; Z11.4 Encounter for screening for human immunodeficiency virus [HIV]
CPT/HCPCS: 36415; 80074; 86592; 86695; 86703; 86790; G0432

== ENCOUNTER → 2021-04-20 18:03 | Outpatient (CLI) | payer BC, OTHER, SELFPAY | PROVIDERS: Visit Provider Internal Medicine Adolescent Medicine | DX: R30.0 Dysuria (principal); B96.20 Unspecified Escherichia coli [E. coli] as the cause of diseases classified elsewhere | CPT/HCPCS: 87086; 87088; 87186 ==

== ENCOUNTER → 2021-04-28 09:45 | Outpatient (CLI) | payer OTHER, SELFPAY ==
[2021-04-28 10:27] LABS: Coronavirus 19, PCR Not Detected (NotDetected); Influenza A, PCR Not Detected (NotDetected); Influenza B, PCR Not Detected (NotDetected)
== END ==
PROVIDERS: PCP Internal Medicine Adolescent Medicine; Visit Provider Nurse Practitioner
DX: Z20.822 Contact with and (suspected) exposure to COVID-19 (principal)
CPT/HCPCS: C9803; U0003; U0005

== ENCOUNTER 2021-04-29 09:06 | Emergency (ER) | payer OTHER, BC, SELFPAY ==
[2021-04-29 09:45] VITALS: BP 112/73; PULSE 92; RESP 21; TEMP 36.9; O2SAT 99; BMI 30.5
[2021-04-29 10:06] LABS: Adenovirus,PCR Not Detected (NotDetected); Bordetella Pertussis Not Detected (NotDetected); Chlamydophila Pneumoniae, PCR Not Detected (NotDetected); Coronavirus 19, PCR Not Detected (NotDetected); Coronavirus 229E Not Detected (NotDetected); Coronavirus NL63 Not Detected (NotDetected); Coronavirus OC43 Not Detected (NotDetected); Coronovirus HKU1,PCR Not Detected (NotDetected); Human Metapneumovirus Not Detected (NotDetected); Influenza A, PCR Not Detected (NotDetected); Influenza AH1, 2009 Not Detected (NotDetected); Influenza AH1, PCR Not Detected (NotDetected); Influenza AH3,PCR Not Detected (NotDetected); Influenza B, PCR Not Detected (NotDetected); Mycoplasma Pneumoniae, PCR Not Detected (NotDetected); Parainfluenza 1, PCR Not Detected (NotDetected); Parainfluenza 2, PCR Not Detected (NotDetected); Parainfluenza 3, PCR Not Detected (NotDetected); Parainfluenza 4, PCR Not Detected (NotDetected); Respiratory Syncytial Virus Not Detected (NotDetected)
--- NOTE | 2021-04-29 10:25 | HMH.EDUTC ---
[facility] [place] Disposition Clinical Impression: Sinusitis Qualifiers: Sinusitis location: unspecified location Chronicity: unspecified Qualified Code(s): J32.9 - Chronic sinusitis, unspecified Disposition: Home, Self-Care Condition on Discharge: Good Instructions: Sinusitis, Cough, DI for Sinusitis, DI for Cough -- Adult Additional Instructions: *Monitor Temp, Over the counter Motrin or Tylenol as directed/as needed Tylenol every 4 hours and Motrin every 6 hours (as long as your family doctor has told you that you can take it) for fever or pain. and straight to ER if unable to lower temp less than 101.0 after medication given *Warm salt water gargles may help to soothe the throat *Throat Lozenges *Warm fluids like tea with honey may help to soothe the throat *Sleep elevated *Humidifier/Vaporizer *Bromfed may cause drowsiness. Know how it effects you (your child) before driving, caring for small child, or sending your child to school. Not other antihistamines/allergy medications while taking bromfed Your throat swab was sent for culture. Those results are typically sent to your primary care. Be sure to follow up in 2-3 days with your family doctor/primary care physician if no improvement so they can review those result and treat if necessary. If you don?t have a primary care doctor, I recommend you get one but in the mean time, you will have to return to a walk in clinic Follow up IMMEDIATELY for new or worsening symptoms or no Noticeable improvement over the next 48-72 hours. 911 for difficulty breathing or swallowing You were tested for today for COVID19 your test result should be back in the next 24-48 hours, you may Check your results on the [facility] My health portal if you have trouble viewing your results or logging on you may call You was given a handout with instructions for Self Quarantine and Self isolation for while you wait on test results and what to do if they are positive If you are positive the Health Dept will be contacting you also Make sure to take your Vitamins Vit. C Vit D and Zinc if you can take them Prescriptions: methylPREDNISolone [Medrol 4mg tab] 4 mg PO DIRECTED #21 tab Transmission Status: Pending to [facility] Azithromycin [Z-Stanislav 250mg Tab] 250 mg PO DIRECTED #6 tab Transmission Status: Pending to [facility] Referrals: Salvatore Baker MD [Primary Care Provider] - As needed Time of Disposition: 10:31 Medical Decision Making - Jose Inquiry Pt receiving controlled substance: No Jose was queried for this patient: No Vital Signs: 04/29/21 09:45 Temperature 98.4 F Temperature Source Oral Pulse Rate [Right Brachial] 92 H Respiratory Rate 21 Blood Pressure [Right Arm] 112/73 Blood Pressure Mean [Right Arm] 86 Blood Pressure Source [Right Arm] Automatic Cuff Blood Pressure Position [Right Arm] Sitting 02 Sat by Pulse Oximetry 99 Oxygen Delivery Method Room Air - Lab Data Lab results reviewed: Yes: I reviewed the patient's lab results. Orders (Tests/Meds): ORDERS Category Date Time Status Full Resp Panel w/COVID ([facility]) Routine Lab 04/29/21 09:56 Received [facility] [place] HPI - General Stated complaint: negative covid tets, covid symptoms Time Seen by Provider: 04/29/21 10:25 Mode of Arrival: Ambulatory Source of Information: Patient Limitations: No Limitations Description of Symptoms (Recalled from Triage Doc. by RN): PATIENT C/O SORE THROAT, COUGH, CONGESTION, HEADACHE, CHILLS, AND NO TASTE SINCE TUESDAY HEENT Symptoms (Recalled from RN notes): Yes Resp Symptoms (Recalled from RN notes): Yes Skin Symptoms (Recalled from RN notes): No MS Symptoms (Recalled from RN notes): No Functional Status (Recalled from RN notes): WNL - History of Present Illness Provider Complaint: Patient states that she has been having cough, sore throat, sinus congestion and pressure and not able to taste anything States that she has been tested for COVID and it was negativ
[2021-04-29 10:35] VITALS: BP 112/73; PULSE 92; RESP 21; TEMP 36.9; O2SAT 99
[2021-04-29 11:49] LABS: Rhinovirus/Enterovirus Detected (NotDetected)
== END 2021-04-29 10:39 | disposition home or self-care (01) ==
PROVIDERS: Emergency Provider Nurse Practitioner; PCP Internal Medicine Adolescent Medicine
DX: J32.9 Chronic sinusitis, unspecified (principal); F41.8 Other specified anxiety disorders
CPT/HCPCS: 87581; 87632; 87798; 99202; C9803; G0463; U0003; U0005

== ENCOUNTER → 2022-08-20 16:36 | Outpatient (CLI) | payer OTHER, SELFPAY ==
--- NOTE | 2022-08-20 16:49 | MR_ITS ---
PROCEDURE INFORMATION: Exam: MR Head Without Contrast Exam date and time: 08/20/2022 5:03 PM Age: 27 years old Clinical indication: Pain; Headache; Additional info: Intractable migraine without aura TECHNIQUE: Imaging protocol: Magnetic resonance imaging of the head without contrast. COMPARISON: No relevant prior studies available. FINDINGS: Brain: Normal. No acute infarct. No hemorrhage. No significant white matter disease. No edema. Cerebral ventricles: Normal. No ventriculomegaly. Bones/joints: Unremarkable. Paranasal sinuses: Right maxillary sinus mucous retention cyst or polyp. No sinus air-fluid level. Mastoid air cells: Normal as visualized. No mastoid effusion. Orbital cavities: Unremarkable. Soft tissues: Unremarkable. IMPRESSION: No acute findings.
== END ==
PROVIDERS: PCP Internal Medicine Adolescent Medicine; Visit Provider Internal Medicine Adolescent Medicine
DX: G43.019 Migraine without aura, intractable, without status migrainosus (principal)
CPT/HCPCS: 70551

== ENCOUNTER → 2023-01-31 06:43 | Outpatient (CLI) | payer OTHER, SELFPAY | PROVIDERS: PCP Family Medicine; Visit Provider Family Medicine | DX: J02.9 Acute pharyngitis, unspecified (principal); B95.7 Other staphylococcus as the cause of diseases classified elsewhere | CPT/HCPCS: 87070; 87077; 87186 ==

== ENCOUNTER 2023-07-01 02:39 | Emergency (ER) | payer BC, OTHER, SELFPAY ==
[2023-07-01] VITALS (20 sets, daily range): BP systolic 99–136; BP diastolic 60–77; PULSE 69–108; RESP 14–16; TEMP 36.8; O2SAT 94–100; BMI 42.5
--- NOTE | 2023-07-01 03:05 | HMH.EDGENADL ---
Discharge Plan Disposition Patient Disposition: Home, Self-Care Condition: Good Prescriptions Prescriptions: No Action rizatriptan 5 mg tablet,disintegrating 5 mg PO Q2H PRN (Reason: migraines) propranolol 20 mg tablet 20 mg PO BID Qty: 60 2RF mirtazapine 7.5 mg tablet 7.5 mg PO DAILY Qty: 30 2RF norgestimate-ethinyl estradiol [Sprintec (28)] 0.25-35 mg-mcg tablet 1 tab PO DAILY Qty: 28 3RF ondansetron 4 mg tablet,disintegrating 4 mg PO Q8H PRN (Reason: nausea and vomiting) Qty: 20 0RF naproxen 500 mg tablet 500 mg PO BID Qty: 60 2RF hydroxyzine pamoate 25 mg capsule 25 mg PO DAILY 30 Days Qty: 30 2RF Vraylar 1.5 mg capsule 1.5 mg PO DAILY Qty: 30 2RF Referrals Follow up/Referrals: Ottoniel Engel MD [Staff Physician] - See instructions Activity Restrictions/Add. Instructions Additional Instructions/Restrictions: Refrain from drug use. Follow-up with your primary care provider. Return to the emergency department for new or worsening symptoms. Clinical Impressions Clinical Impression: Marijuana intoxication Instructions Patient Instructions: DI for Nausea -- Adult Discharge ED Provider: Sunita Mckinley General Adult HPI <Sunita Mckinley DO - Last Filed: 07/01/23 06:37> General Chief complaint: Nausea/Vomiting/Diarrhea Stated complaint: vomitting Time Seen by Provider: 07/01/23 02:45 Mode of Arrival: EMS Source of Information: Patient and EMS Limitations: No Limitations Description of Symptoms (Recalled from ER Triage Doc. by RN): Patient ate THC gummies and used a THC vape then got nausea and tingling. History of Present Illness HPI narrative: This patient is a 28-year-old female with history of anxiety and depression presenting to the emergency department for evaluation with concern for not feeling right. Patient arrives by EMS, who noted that she had called them in the setting of vomiting after using THC. Patient states that she ate THC Gummies, used a THC vape, and then she became severely nauseated and started vomiting. She stated that she is not vomiting anymore, but she just does not feel right. She states she feels tingling all over. She was well prior to this. No other concerns noted at this time. Related Data Home Medications Medication Instructions Recorded Confirmed rizatriptan 5 mg disintegrating 5 mg PO Q2H PRN migraines 01/31/23 05/05/23 tablet Previous Rx's Medication Instructions Recorded propranolol 20 mg tablet 20 mg PO BID #60 tabs 02/10/23 naproxen 500 mg tablet 500 mg PO BID #60 tabs 02/28/23 mirtazapine 7.5 mg tablet 7.5 mg PO DAILY #30 tabs 03/11/23 norgestimate 0.25 mg-ethinyl 1 tab PO DAILY #28 tabs 03/11/23 estradiol 35 mcg tablet (Sprintec (28)) ondansetron 4 mg disintegrating 4 mg PO Q8H PRN nausea and 03/21/23 tablet vomiting #20 tabs cariprazine 1.5 mg capsule 1.5 mg PO DAILY #30 caps 06/16/23 (Vraylar) hydroxyzine pamoate 25 mg capsule 25 mg PO DAILY . 30 days #30 caps 06/16/23 Allergies Allergy/AdvReac Type Severity Reaction Status Date / Time No Known Drug Intolerances Allergy Unknown NA Verified 05/05/23 12: PFSH <Sunita Mckinley DO - Last Filed: 07/01/23 06:37> PFS Disclaimer: The information contained in this section may have been updated after the patient was seen, as this information can be updated by other users. Medical History Anxiety Bipolar affect, depressed Cellulitis Depression Headache Lumbar radiculopathy Migraines Pharyngitis Sinusitis Strep throat Surgical History History of 3 sections History of cholecystectomy Family History Father Cancer Hypertension Stroke Diabetes Social History Smoking Status: Never smoker alcohol intake: never substance use type: denies use current occupational status: employed Travel in the last 8 weeks: None household members: family and children housing: house caffeine: No <Sunita Mckinley DO - Last Filed: 07/01/23 06:37> ROS Obtained: Yes All systems reviewed & no additional complaints except as documented Physical Exam <Sunita Mckinley DO - Last Filed: 07/01/23 06:37> General General appearance: alert, in no apparent distress and obese Head Head exam: atraumatic and normocephalic Eye Eye exam: Present normal appearance, PERRL and EOMI ENT ENT exam: Present normal exam, normal oropharynx, mucous membranes moist and normal external ear exam Neck Neck exam: Present normal inspection, full ROM and trachea midline; Absent tenderness Chest Chest inspection: Present normal inspection and symmetric chest wall rise; Absent tenderness Respiratory Respiratory exam: Present normal lung sounds bilaterally; Absent respiratory distress, wheezes, stridor or accessory muscle use Cardiovascular Cardiovascular exam: Present regular rate and normal rhythm Abdominal Exam Abdominal exam: Present soft; Absent distention, tenderness or guarding Extremities Exam Extremities exam: Present normal inspection, full ROM and normal capillary refill; Absent tenderness or edema Back Exam Back exam: Present normal inspection and full ROM; Absent tenderness Neurological Exam Neurological exam: Present alert, oriented X3, CN II-XII intact and normal gait; Absent motor sensory deficit Psychiatric Psychiatric exam: Present normal affect and normal mood Skin Skin exam: Present warm and dry Medical Decision Making <Sunita Mckinley DO - Last Filed: 07/01/23 06:37> Medical Records Medical records reviewed: Yes I reviewed the patient's medical records. Jose Inquiry Pt receiving controlled substance: No Vital Signs: 07/01/23 02:39 07/01/23 02:43 07/01/23 03:00 Temperature 98.2 F Temperature Source Oral Pulse Rate 99 H 104 H Pulse Rate [Radial] 99 H Respiratory Rate 14 Blood Pressure 104/71 L 102/66 L Blood Pressure [Right Arm] 104/71 L Blood Pressure Mean 83 74 Blood Pressure Mean [Right Arm] 82 Blood Pressure Source [Right Arm] Automatic Cuff Blood Pressure Position [Right Arm] Sitting 02 Sat by Pulse Oximetry 94 L 94 L 95 Oxygen Delivery Method Room Air 07/01/23 03:20 07/01/23 04:00 07/01/23 04:20 Temperature Temperature Source Pulse Rate 101 H 94 H 91 H Pulse Rate [Radial] Respiratory Rate Blood Pressure 105/60 L 101/64 L 101/64 L Blood Pressure [Right Arm] Blood Pressure Mean 73 71 Blood Pressure Mean [Right Arm] Blood Pressure Source [Right Arm] Blood Pressure Position [Right Arm] 02 Sat by Pulse Oximetry 95 97 96 Oxygen Delivery Method 07/01/23 04:40 07/01/23 05:00 07/01/23 05:20 Temperature Temperature Source Pulse Rate 108 H 91 H 95 H Pulse Rate [Radial] Respiratory Rate Blood Pressure 105/68 L 99/64 L 114/68 Blood Pressure [Right Arm] Blood Pressure Mean 71 80 Blood Pressure Mean [Right Arm] Blood Pressure Source [Right Arm] Blood Pressure Position [Right Arm] 02 Sat by Pulse Oximetry 98 97 97 Oxygen Delivery Method 07/01/23 05:40 07/01/23 07:00 07/01/23 07:40 Temperature Temperature Source Pulse Rate 96 H 85 81 Pulse Rate [Radial] Respiratory Rate Blood Pressure 102/65 L 106/65 L 109/65 L Blood Pressure [Right Arm] Blood Pressure Mean 72 Blood Pressure Mean [Right Arm] Blood Pressure Source [Right Arm] Blood Pressure Position [Right Arm] 02 Sat by Pulse Oximetry 97 96 98 Oxygen Delivery Method Room Air Room Air 07/01/23 08:00 07/01/23 08:20 07/01/23 08:40 Temperature Temperature Source Pulse Rate 89 91 H 85 Pulse Rate [Radial] Respiratory Rate Blood Pressure 112/63 107/67 L 113/62 Blood Pressure [Right Arm] Blood Pressure Mean Blood Pressure Mean [Right Arm] Blood Pressure Source [Right Arm] Blood Pressure Position [Right Arm] 02 Sat by Pulse Oximetry 98 100 98 Oxygen Delivery Method Room Air Room Air Room Air 07/01/23 09:00 07/01/23 09:20 07/01/23 09:40 Temperature Temperature Source Pulse Rate 69 78 73 Pulse Rate [Radial] Respiratory Rate Blood Pressure 114/66 108/60 L 107/61 L Blood Pressure [Right Arm] Blood Pressure Mean 81 Blood Pressure Mean [Right Arm] Blood Pressure Source [Right Arm] Blood Pressure Position [Right Arm] 02 Sat by Pulse Oximetry 97 97 98 Oxygen Delivery Method Room Air Room Air Lab Data Lab results reviewed: Yes I reviewed the patient's lab results. Orders (Tests/Meds): ED MEDICATIONS Discontinued Medications Generic Name Dose Route Start Last Admin Trade Name Freq PRN Reason Stop Dose Admin Ondansetron HCl 4 mg 07/01/23 02:52 07/01/23 03:15 Ondansetron 4mg Odt SL 07/01/23 02:53 4 mg ONCE ONE Administration ORDERS Category Date Time Status ECG initial Abigailson Routine Y 07/01/23 03:26 Completed ECG Data Tracing #1: I reviewed this ECG and interpreted as documented below: Normal sinus rhythm with ventricular rate of 99 bpm. Normal axis and intervals. No acute ST elevations concerning for ischemia ECG initial impression date: 07/01/23 ECG initial impression time: 03:28 Medical Decision Narrative: In summary, this patient is a 28-year-old female presenting to the Emergency Department for evaluation of vomiting, tingling, and feeling not right in the setting of THC use. Differential diagnoses considered include but are not limited to THC intoxication, polysubstance ingestion, THC overdose. Ruling out the most morbid conditions drove assessment. On exam, the patient is in no acute distress with reassuring vital signs on cardiac telemetry. She is very lethargic and is also experienced nausea and vomiting, which I feel are related to her THC toxicity. Workup included EKG. She was given Zofran ODT for symptomatic improvement of nausea. At 0300 patient was placed in ED observation status pending serial reassessments, clinical sobriety, and determination if the patient is appropriate for discharge after metabolizing her marijuana or would require further workup. Patient's parents arrived at bedside and confirms story. They noted that a friend who is with her had contacted them. The friend also suffered similar symptoms after ingesting THC. On physical reassessments, the patient has had gradual improvement in her mental status and symptoms. She still remains tired. Vitals have remained reassuring on cardiac telemetry. At 0700, patient care was signed out to the oncoming provider, Dr. Redman, pending reassessments and disposition. Total ED observation time was []. I had a [id number] visit with the patient when providing discharge instructions. The total time involved in discharging this patient was less than 30 minutes. <Chris Redman MD - Last Filed: 07/01/23 14:29> Vital Signs: 07/01/23 02:39 07/01/23 02:43 07/01/23 03:00 Temperature 98.2 F Temperature Source Oral Pulse Rate 99 H 104 H Pulse Rate [Radial] 99 H Respiratory Rate 14 Blood Pressure 104/71 L 102/66 L Blood Pressure [Right Arm] 104/71 L Blood Pressure Mean 83 74 Blood Pressure Mean [Right Arm] 82 Blood Pressure Source [Right Arm] Automatic Cuff Blood Pressure Position [Right Arm] Sitting 02 Sat by Pulse Oximetry 94 L 94 L 95 Oxygen Delivery Method Room Air 07/01/23 03:20 07/01/23 04:00 07/01/23 04:20 Temperature Temperature Source Pulse Rate 101 H 94 H 91 H Pulse Rate [Radial] Respiratory Rate Blood Pressure 105/60 L 101/64 L 101/64 L Blood Pressure [Right Arm] Blood Pressure Mean 73 71 Blood Pressure Mean [Right Arm] Blood Pressure Source [Right Arm] Blood Pressure Position [Right Arm] 02 Sat by Pulse Oximetry 95 97 96 Oxygen Delivery Method 07/01/23 04:40 07/01/23 05:00 07/01/23 05:20 Temperature Temperature Source Pulse Rate 108 H 91 H 95 H Pulse Rate [Radial] Respiratory Rate Blood Pressure 105/68 L 99/64 L 114/68 Blood Pressure [Right Arm] Blood Pressure Mean 71 80 Blood Pressure Mean [Right Arm] Blood Pressure Source [Right Arm] Blood Pressure Position [Right Arm] 02 Sat by Pulse Oximetry 98 97 97 Oxygen Delivery Method 07/01/23 05:40 07/01/23 07:00 07/01/23 07:40 Temperature Temperature Source Pulse Rate 96 H 85 81 Pulse Rate [Radial] Respiratory Rate Blood Pressure 102/65 L 106/65 L 109/65 L Blood Pressure [Right Arm] Blood Pressure Mean 72 Blood Pressure Mean [Right Arm] Blood Pressure Source [Right Arm] Blood Pressure Position [Right Arm] 02 Sat by Pulse Oximetry 97 96 98 Oxygen Delivery Method Room Air Room Air 07/01/23 08:00 07/01/23 08:20 07/01/23 08:40 Temperature Temperature Source Pulse Rate 89 91 H 85 Pulse Rate [Radial] Respiratory Rate Blood Pressure 112/63 107/67 L 113/62 Blood Pressure [Right Arm] Blood Pressure Mean Blood Pressure Mean [Right Arm] Blood Pressure Source [Right Arm] Blood Pressure Position [Right Arm] 02 Sat by Pulse Oximetry 98 100 98 Oxygen Delivery Method Room Air Room Air Room Air 07/01/23 09:00 07/01/23 09:20 07/01/23 09:40 Temperature Temperature Source Pulse Rate 69 78 73 Pulse Rate [Radial] Respiratory Rate Blood Pressure 114/66 108/60 L 107/61 L Blood Pressure [Right Arm] Blood Pressure Mean 81 Blood Pressure Mean [Right Arm] Blood Pressure Source [Right Arm] Blood Pressure Position [Right Arm] 02 Sat by Pulse Oximetry 97 97 98 Oxygen Delivery Method Room Air Room Air Orders (Tests/Meds): ED MEDICATIONS Discontinued Medications Generic Name Dose Route Start Last Admin Trade Name Shahzad PRN Reason Stop Dose Admin Ondansetron HCl 4 mg 07/01/23 02:52 07/01/23 03:15 Ondansetron 4mg Odt SL 07/01/23 02:53 4 mg ONCE ONE Administration ORDERS Category Date Time Status ECG initial Besson Routine Y 07/01/23 03:26 Completed Medical Decision Narrative: In summary, this patient is a 28-year-old female presenting to the Emergency Department for evaluation of vomiting, tingling, and feeling not right in the setting of THC use. Differential diagnoses considered include but are not limited to THC intoxication, polysubstance ingestion, THC overdose. Ruling out the most morbid conditions drove assessment. On exam, the patient is in no acute distress with reassuring vital signs on cardiac telemetry. She is very lethargic and is also experienced nausea and vomiting, which I feel are related to her THC toxicity. Workup included EKG. She was given Zofran ODT for symptomatic improvement of nausea. At 0300 patient was placed in ED observation status pending serial reassessments, clinical sobriety, and determination if the patient is appropriate for discharge after metabolizing her marijuana or would require further workup. Patient's parents arrived at bedside and confirms story. They noted that a friend who is with her had contacted them. The friend also suffered similar symptoms after ingesting THC. On physical reassessments, the patient has had gradual improvement in her mental status and symptoms. She still remains tired. Vitals have remained reassuring on cardiac telemetry. At 0700, patient care was signed out to the oncoming provider, Dr. Redman, pending reassessments and disposition. Redman: Upon my assumption of care, patient is a GCS 14, arousable, she is more oriented but still not at baseline. I agree with the primary provider's assessment and plan at this time. She has not yet been able to ambulate or p.o. in the ER. I continued monitoring her on cardiac telemetry. After extensive time in observation, patient was able to ambulate. She was alert and oriented, clinically sober, and attempting PO intake at this time. Patient was able to tolerate PO and continues to feel improved. She is appropriate for discharge at this time. Total ED observation time was 7 hours and 28 minutes. Patient was given instructions on symptomatic management, follow up instructions, and return precautions for the emergency department. Patient indicated understanding and was discharged in stable condition. I had a [id number] visit with the patient when providing discharge instructions. The total time involved in discharging this patient was less than 30 minutes. Critical Care <Sunita Mckinley, DO - Last Filed: 07/01/23 06:37> Critical Care Time Critical Care Time: No
[2023-07-01] MEDS: ONDANSETRON 4MG ODT 4 MG SL (03:15)
--- NOTE | 2023-07-01 03:26 | ECG_ITS ---
APPROVED REPORT Exam: Resting ECG HR:99 bpm ECG Measurements Heart Rate 99 AXES GA 200 P 56 QRSd 99 QRS 55 QT 328 T 55 QTc 384 Conclusion SINUS RHYTHM LOW QRS VOLTAGE IN PRECORDIAL LEADS [QRS DEFLECTION < 1.0 mV IN CHEST LEADS] BORDERLINE ECG UNCONFIRMED REPORT Electronically signed by : Donald Gonzalez MD 07/02/2023 08:19:58
--- NOTE | 2023-07-01 07:41 | PC.NURSE ---
rounded on pt she was alseep in bed call light at bs
--- NOTE | 2023-07-01 08:47 | PC.NURSE ---
checked on pt sleeping in bed call light at bs
--- NOTE | 2023-07-01 09:47 | PC.NURSE ---
pt sleeping in bed no needs at this time call light at bs
--- NOTE | 2023-07-01 09:49 | PC.NURSE ---
I called dietary to see about getting the pt a breakfast tray. Then walked the pt around the nurses station. The pt stated she felt fine and no apparent distress noted.
--- NOTE | 2023-07-01 12:46 | PC.NURSE ---
pt sleeping in bed no needs at this time call light at bs
--- NOTE | 2023-07-01 13:04 | PC.NURSE ---
family states that they are on their way to get pt
== END 2023-07-01 14:32 | disposition home or self-care (01) ==
PROVIDERS: Emergency Provider Emergency Medicine; PCP Internal Medicine Adolescent Medicine
DX: R11.2 Nausea with vomiting, unspecified (principal); F12.929 Cannabis use, unspecified with intoxication, unspecified; R53.83 Other fatigue
CPT/HCPCS: 93005; 99283

== ENCOUNTER 2023-12-27 14:03 | Outpatient (CLI) | payer OTHER, SELFPAY ==
[2023-12-28 13:28] LABS: HIV (1&2) Antibody Rapid NONREACTIVE (NONREACTIVE)
[2023-12-29 05:09] LABS: HCV Ab Non Reactive (Non Reactive); Hepatitis B Surface Antigen Negative (Negative)
[2023-12-29 13:41] LABS: Rapid Plasma Reagin Ab Titer Non Reactive titer (NonRea<1:1)
== END 2023-12-27 23:59 | disposition home or self-care (01) ==
LOC: LAB 14:04
PROVIDERS: PCP Internal Medicine Adolescent Medicine; Visit Provider Nurse Practitioner Obstetrics & Gynecology
DX: Z01.419 Encounter for gynecological examination (general) (routine) without abnormal findings (principal)
CPT/HCPCS: 86803; 86703; 36415; 86593; 87340

== ENCOUNTER 2024-04-26 10:15 | Outpatient (CLI) | payer OTHER, SELFPAY ==
[2024-04-26 16:54] LABS: Basophils # 0.1 K/mm3 (0-0.2); Basophils % 1.1 % (0.1-2.0); Eosinophils # 0.1 K/mm3 (0.0-0.4); Eosinophils % 1.7 % (0.1-12.0); Hematocrit 39.1 % (37.0-47.0); Hemoglobin 13.4 g/dL (12.2-16.2); Lymphocytes # 1.2 K/mm3 (0.7-4.5); Lymphocytes % 27.1 % (10-50); Mean Corpuscular HGB Conc 34.2 g/dL (31.8-35.4); Mean Corpuscular Hemoglobin 32.9 pg (27.0-31.2); Mean Corpuscular Volume 96.1 fl (81-99); Mean Platelet Volume 9.3 fl (7.4-10.4); Monocytes # 0.3 K/mm3 (0.1-1.0); Monocytes % 6.9 % (1.7-9.3); Neutrophils # 2.9 K/mm3 (1.8-7.8); Neutrophils % 63.3 % (37.0-80.0); Platelet Count 308 K/mm3 (142-424); Red Blood Count 4.07 M/mm3 (4.20-5.40); Red Cell Distribution Width 13.3 % (11.5-17.5); White Blood Count 4.5 K/mm3 (4.8-10.8)
[2024-04-26 17:10] LABS: Alanine Aminotransferase 20 U/L (12-78); Albumin Level 4.3 g/dl (3.5-5.0); Albumin/Globulin Ratio 1.6 (1.1-1.8); Alkaline Phosphatase 55 U/L (38-126); Anion Gap 12.4 mEq/L (5-15); Aspartate Amino Transferase 29 U/L (14-36); Bilirubin,Total 0.7 mg/dl (0.2-1.3); Blood Urea Nitrogen 13 mg/dl (7-17); Calcium 9.5 mg/dl (8.4-10.2); Carbon Dioxide 26 mmol/L (22.0-30.0); Chloride 105 mmol/L (98-107); Chol/HDL Ratio 3.4 (1-3.5); Cholesterol 152 mg/dl (140-200); Estimated Glomerular Filt Rate 119 ml/min (>60); GFR (African American) 144 ML/MIN (>60); Globulin 2.7 g/dL (1.3-3.2); Glucose 75 mg/dl (74-100); HDL Cholesterol 45 mg/dl (40-60); Potassium 4.4 mmoL/L (3.5-5.1); Sodium 139 mmol/L (136-145); Triglycerides 75 mg/dl (30-150); VLDL Cholesterol 15 mg/dL (0-40)
[2024-04-26 17:25] LABS: 25-OH Vitamin D, Total 21.2 ng/mL (30-100)
[2024-04-26 17:26] LABS: T4 (Thyroxine) 7.2 ug/dl (5.53-11.0)
[2024-04-26 17:59] LABS: Vitamin B12 331 pg/mL (239-931)
[2024-04-30 22:07] LABS: Estrogen 174 pg/mL (.)
== END 2024-04-26 23:59 | disposition home or self-care (01) ==
LOC: LAB.DROPOF 04-27 15:13
PROVIDERS: PCP Family Medicine; Visit Provider Family Medicine
DX: R53.83 Other fatigue (principal); R35.0 Frequency of micturition; Z13.220 Encounter for screening for lipoid disorders; E55.9 Vitamin D deficiency, unspecified
CPT/HCPCS: 80050; 80053; 80061; 82306; 82607; 82672; 84436; 84443; 85025; 87086; 87088; 87186

== ENCOUNTER 2024-06-04 19:02 | Emergency (ER) | payer OTHER, SELFPAY ==
[2024-06-04 19:19] VITALS: BP 105/58; PULSE 100; RESP 18; TEMP 36.7; O2SAT 100; BMI 25.4
--- NOTE | 2024-06-04 19:26 | EXP.UTC ---
Discharge Plan Disposition Patient Disposition: Still a Patient Condition: Fair Prescriptions Prescriptions: No Action Nurtec ODT 75 mg tablet,disintegrating 75 mg PO methocarbamol 500 mg tablet 500 mg PO BID ondansetron 4 mg tablet,disintegrating 4 mg PO DAILY ciprofloxacin HCl 500 mg tablet 500 mg PO Q12H Qty: 14 0RF Referrals Follow up/Referrals: Ottoniel Engel MD [Primary Care Provider] - See instructions Clinical Impressions Clinical Impression: Abdominal pain, Acute right flank pain Print Language Print Language: Hungarian Discharge ED Provider: Salvatore Yanez [facility] [place] HPI General Stated complaint: lower back/pelvic pain Mode of Arrival: Ambulatory Source of Information: Patient Time Seen by Provider: 06/04/24 19:25 Description of Symptoms (Recalled from Triage Doc. by RN): LEFT SIDED ABDOMINAL PAIN AND BACK PAIN HEENT Symptoms (Recalled from RN notes): No Resp Symptoms (Recalled from RN notes): No Skin Symptoms (Recalled from RN notes): No MS Symptoms (Recalled from RN notes): No Functional Status (Recalled from RN notes): WNL History of Present Illness Provider Complaint: She states that for the past several days she has had worsening right flank pain, right lower quadrant abdominal pain and right sided low back pain. She denies any urinary complaints. She states that her period has been very weird also. She states that her period started around 4 days ago, but then she stopped bleeding 2 days ago, but then she started having spotting today. Related Data Home Medications ?Medication ?Instructions ?Recorded ?Confirmed methocarbamol 500 mg tablet 500 mg PO BID 04/26/24 05/01/24 rimegepant 75 mg disintegrating 75 mg PO 04/26/24 05/01/24 tablet (Nurtec ODT) ondansetron 4 mg disintegrating 4 mg PO DAILY 05/01/24 05/01/24 tablet Previous Rx's ?Medication ?Instructions ?Recorded ciprofloxacin HCl 500 mg tablet 500 mg PO Q12H #14 tabs 04/30/24 Allergies Allergy/AdvReac Type Severity Reaction Status Date / Time No Known Allergies Allergy Verified 05/01/24 16:02 Worker's Comp Is this a Worker's Comp case?: No [facility] Disclaimer: The information contained in this section may have been updated after the patient was seen, as this information can be updated by other users. Medical History Bipolar affect, depressed Anxiety Depression Migraines Sinusitis Strep throat Headache Pharyngitis Cellulitis Lumbar radiculopathy Surgical History H/O gastric sleeve History of 3 sections History of cholecystectomy Family History Father Cancer Hypertension Stroke Diabetes Social History Smoking Status: Never smoker alcohol intake: never substance use type: denies use current occupational status: employed Travel in the last 8 weeks: None household members: family and children housing: house caffeine: No Have you lived/traveled outside [place] in past 30 days?: No Contact w/someone who lives/traveled outside [place] past 30 days?: No Exposure to someone with infectious disease in past 14 days?: No Do you have a fever (greater than 100.4 F or 38 C)?: No Have you tested positive for COVID-19: No Exposed to someone with COVID-19 in past 14 days?: No Do you have a sore throat?: No Do you have a cough?: No Do you have any weakness?: No Do you have any diarrhea?: No Are you experiencing any unusual bleeding?: No Do you have any muscle aches/pain?: No Do you have any abdominal pain?: Yes Are you experiencing loss of taste or smell?: No ROS Obtained: Yes All systems reviewed & no additional complaints except as documented Constitutional Constitutional: Denies chills, Denies fever(s) and Reports poor appetite ENT Ears, Nose, Mouth, and Throat: Denies dizziness and Denies sore throat Cardiovascular Cardiovascular: Denies dyspnea Respiratory Respiratory: Denies chest congestion, Denies cough and Denies dyspnea Gastrointestinal Gastrointestingal: Reports as per HPI and abdominal pain Genitourinary Female Genitourinary: Denies difficulty voiding, Denies dysuria, Denies hematuria, Denies urinary frequency, Denies urinary incontinence, Denies urinary hesitancy and Denies urinary urgency Musculoskeletal Musculoskeletal: Denies arthralgias Integumentary/Breasts Skin/Breast: Denies rash Neurologic Neurologic: Denies dizziness Physical Exam General General appearance: alert and in no apparent distress Head Head exam: atraumatic and normocephalic Eye Eye exam: Present normal appearance, PERRL and EOMI ENT ENT exam: Present normal exam, normal oropharynx, mucous membranes moist, TM's normal bilaterally and normal external ear exam Neck Neck exam: Present normal inspection, full ROM and trachea midline; Absent tenderness, meningismus or lymphadenopathy Chest Chest inspection: Present normal inspection and symmetric chest wall rise; Absent tenderness, rash or abscess Respiratory Respiratory exam: Present normal lung sounds bilaterally; Absent respiratory distress, wheezes or stridor Cardiovascular Cardiovascular exam: Present regular rate and normal rhythm; Absent irregular rhythm, systolic murmur, diastolic murmur or JVD Abdominal Exam Abdominal exam: Present soft, tenderness, guarding, rigidity and diminished bowel sounds; Absent distention or rebound Extremities Exam Extremities exam: Present normal inspection and full ROM; Absent tenderness Back Exam Back exam: Present normal inspection and full ROM; Absent tenderness, CVA tenderness (R) or CVA tenderness (L) Neurological Exam Neurological exam: Present alert, oriented X3 and CN II-XII intact Psychiatric Psychiatric exam: Present normal affect and normal mood Skin Skin exam: Present warm, dry, intact and normal color Lymphatic Lymphatic Findings: no adenopathy Medical Decision Making Medical Records Medical records reviewed: No I reviewed the patient's medical records. Screening: Per USPSTF and CDC recommendations, given the prevalence of disease in our region, it is our hospital?s policy to screen for HIV and viral Hepatitis for all patients aged 18 and over and those with ongoing risk factors. Jose Inquiry Pt receiving controlled substance: No Vital Signs: 06/04/24 19:19 Temperature 98.1 F Temperature Source Oral Pulse Rate [Left Radial] 100 H Respiratory Rate 18 Blood Pressure [Left Arm] 105/58 L Blood Pressure Mean [Left Arm] 73 02 Sat by Pulse Oximetry 100 Medical Decision Narrative: She was transferred to the er due to her abdominal pain with no clear etiology.
[2024-06-04 19:28] LABS: Apearance,Urine Cloudy (Clear); Bilirubin,Urine Negative (Negative); Blood, Urine 4+ (Negative); Color,Urine Yellow (Yellow); Glucose,Urine (UA) Negative (Negative); Ketones,Urine Negative (Negative); PH,Urine 5.5 (5.0-8.5); Protein,Urine Negative (Negative); UTC Leukocyte Esterase,Urine 1+ (Negative); Urobilinogen,Urine 0.2 EU/dl (0.2)
[2024-06-04 19:29] LABS: UTC Nitrate,Urine Negative (Negative); UTC Pregnancy Test, Urine Negative (Negative)
[2024-06-04 20:08] VITALS: BP 120/66; PULSE 75; RESP 18; TEMP 36.4; O2SAT 100; BMI 25.4
--- NOTE | 2024-06-04 20:51 | HMH.EDGENADL ---
Discharge Plan Disposition Patient Disposition: Home, Self-Care Condition: Fair Prescriptions Prescriptions: No Action Nurtec ODT 75 mg tablet,disintegrating 75 mg PO methocarbamol 500 mg tablet 500 mg PO BID ondansetron 4 mg tablet,disintegrating 4 mg PO DAILY ciprofloxacin HCl 500 mg tablet 500 mg PO Q12H Qty: 14 0RF Referrals Follow up/Referrals: Ottoniel Engel MD [Primary Care Provider] - See instructions Clinical Impressions Clinical Impression: Abdominal pain, Acute right flank pain Print Language Print Language: [place] Discharge ED Provider: Amari Gallego General Adult HPI <CRISTIN Miranda - Last Filed: 06/04/24 21:51> General Chief complaint: PAIN Stated complaint: lower back/pelvic pain Time Seen by Provider: 06/04/24 19:25 Mode of Arrival: Ambulatory Source of Information: Patient and Significant Other Limitations: No Limitations Description of Symptoms (Recalled from ER Triage Doc. by RN): Patient reports she has been having an irregular period this past week, but tonight reports she started having left pelvic pain that is radiating to her lower abdomen. Patient reports pain started to increase tonight. History of Present Illness HPI narrative: Patient presents for evaluation of bilateral low back pain and abdominal pain. Patient gives a history of approximately 1 week of bilateral low back pain however she began having radiating pain from her low back down both sides towards her suprapubic area of her abdomen. She denies any nausea vomiting she denies any diarrhea and reports she is able to tolerate oral intake although she has not had much appetite and she is having normal bowel movements and passing gas. She reports a short period of just 1 to 2 days last week which is unusual for her. She does not know if she could be . However she was seen in the [facility] earlier today and her test was negative. She denies any fever chills hemoptysis hematochezia melena hematemesis hematuria vaginal discharge. Related Data Home Medications ?Medication ?Instructions ?Recorded ?Confirmed methocarbamol 500 mg tablet 500 mg PO BID 04/26/24 05/01/24 rimegepant 75 mg disintegrating 75 mg PO 04/26/24 05/01/24 tablet (Nurtec ODT) ondansetron 4 mg disintegrating 4 mg PO DAILY 05/01/24 05/01/24 tablet Previous Rx's ?Medication ?Instructions ?Recorded ciprofloxacin HCl 500 mg tablet 500 mg PO Q12H #14 tabs 04/30/24 Allergies Allergy/AdvReac Type Severity Reaction Status Date / Time No Known Allergies Allergy Verified 05/01/24 16:02 PFS <CRISTIN Miranda - Last Filed: 06/04/24 21:51> [facility] Disclaimer: The information contained in this section may have been updated after the patient was seen, as this information can be updated by other users. Medical History Bipolar affect, depressed Anxiety Depression Migraines Sinusitis Strep throat Headache Pharyngitis Cellulitis Lumbar radiculopathy Surgical History H/O gastric sleeve History of 3 sections History of cholecystectomy Family History Father Cancer Hypertension Stroke Diabetes Social History Smoking Status: Never smoker alcohol intake: never substance use type: denies use current occupational status: employed Travel in the last 8 weeks: None household members: family and children housing: house caffeine: No Have you lived/traveled outside [place] in past 30 days?: No Contact w/someone who lives/traveled outside US past 30 days?: No Exposure to someone with infectious disease in past 14 days?: No Do you have a fever (greater than 100.4 F or 38 C)?: No Have you tested positive for COVID-19: No Exposed to someone with COVID-19 in past 14 days?: No Do you have a sore throat?: No Do you have a cough?: No Do you have any weakness?: No Do you have any diarrhea?: No Are you experiencing any unusual bleeding?: No Do you have any muscle aches/pain?: No Do you have any abdominal pain?: Yes Are you experiencing loss of taste or smell?: No Other Medical History Have you received the Flu Vaccine for this season: No Have you received the Pneumonia Vaccine: No <CRISTIN Miranda - Last Filed: 06/04/24 21:51> ROS Obtained: Yes Systems reviewed as appropriate & no additional complaints except as documented Physical Exam <CRISTIN Miranda - Last Filed: 06/04/24 21:51> General General appearance: alert and in no apparent distress Respiratory Respiratory exam: Present normal lung sounds bilaterally Cardiovascular Cardiovascular exam: Present regular rate Neurological Exam Neurological exam: Present alert and oriented X3 Medical Decision Making <CRISTIN Miranda - Last Filed: 06/04/24 21:51> Medical Records Medical records reviewed: Yes I reviewed the patient's medical records. Screening: Per USPSTF and CDC recommendations, given the prevalence of disease in our region, it is our hospital?s policy to screen for HIV and viral Hepatitis for all patients aged 18 and over and those with ongoing risk factors. Jose Inquiry Pt receiving controlled substance: No Vital Signs: 06/04/24 19:19 06/04/24 20:08 Temperature 98.1 F 97.6 F Temperature Source Oral Oral Pulse Rate [Left Radial] 100 H 75 Respiratory Rate 18 18 Blood Pressure [Left Arm] 105/58 L 120/66 Blood Pressure Mean [Left Arm] 73 84 Blood Pressure Source [Left Arm] Automatic Cuff Blood Pressure Position [Left Arm] Supine 02 Sat by Pulse Oximetry 100 100 Oxygen Delivery Method Room Air Lab Data Lab results reviewed: Yes I reviewed the patient's lab results. Lab Results 06/04/24 19:21: Urine Color Yellow, Urine Appearance Cloudy, Urine pH 5.5, Ur Specific [place] 1.030, Urine Protein Negative, Urine Glucose (UA) Negative, Urine Ketones Negative, Urine Blood 4+, Urine Nitrate Negative, Urine Bilirubin Negative, Urine Urobilinogen 0.2, Ur Leukocyte Esterase 1+ A, [facility] Clinic Negative 06/04/24 21:20: WBC 6.8, RBC 3.99 L, Hgb 12.5, Hct 37.4, MCV 93.7, MCH 31.3 H, MCHC 33.4, RDW 12.2, Plt Count 330, MPV 11.1 H, Neut % (Auto) 60.7, Lymph % (Auto) 29.7, [place] % (Auto) 7.9, Eos % (Auto) 0.7, Baso % (Auto) 0.7, Neut # (Auto) 4.1, Lymph # (Auto) 2.0, [place] # (Auto) 0.5, Eos # (Auto) 0.1, Baso # (Auto) 0.1, Sodium 137, Potassium 3.5, Chloride 101, Carbon Dioxide 28, Anion Gap 11.5, BUN 12, Creatinine 0.50 L, Estimated Creat Clear 173, Estimated GFR 147, Est GFR ( Amer) 178, Glucose 74, Calcium 9.4, Total Bilirubin 0.3, AST 28, ALT 24, Alkaline Phosphatase 65, Total Protein 7.6, Albumin 4.5, Globulin 3.1, Albumin/Globulin Ratio 1.5 06/04/24 22:44: Urine Color Yellow, Urine Appearance Clear, Urine pH 5.0, Ur Specific [place] 1.010, Urine Protein Negative, Urine Glucose (UA) Negative, Urine Ketones 1+, Urine Blood Negative, Urine Nitrate Negative, Urine Bilirubin Negative, Urine Urobilinogen 0.2, Ur Leukocyte Esterase Negative 06/04/24 21:20 06/04/24 21:20 Orders (Tests/Meds): ED MEDICATIONS Discontinued Medications Generic Name Dose Route Start Last Admin Trade Name Shahzad PRN Reason Stop Dose Admin Acetaminophen 1,000 mg 06/04/24 21:27 Acetaminophen 500mg Tab PO 06/04/24 21:28 ONCE ONE Iopamidol 75 ml 06/04/24 21:24 06/04/24 21:25 Iopamidol-370 (76%);100ml Bottle IV 06/04/24 21:25 75 ml ONCE ONE Administration Ketorolac Tromethamine 15 mg 06/04/24 20:54 06/04/24 21:13 Ketorolac 30mg/Ml Vial IV 06/04/24 20:55 15 mg ONCE ONE Administration Ketorolac Tromethamine 15 mg 06/04/24 21:27 Ketorolac 30mg/Ml Vial IV 06/04/24 21:28 ONCE ONE Methocarbamol 500 mg 06/04/24 21:27 Methocarbamol 500mg Tablet PO 06/04/24 21:28 ONCE ONE Sodium Chloride 10 ml 06/04/24 21:24 06/04/24 21:25 Sodium Chloride 0.9% 10ml Syr (Rad Only) IV 06/04/24 21:25 10 ml ONCE ONE Administration ORDERS Category Date Time Status CT abdomen pelvis w con Stat Cat Scan 06/04/24 20:54 Completed CBC w/Auto Diff [Complete Blood Count Auto Diff] Stat Lab 06/04/24 21:20 Completed CMP [Comprehensive Metabolic Panel] Stat Lab 06/04/24 21:20 Completed UA [Urinalysis and Microscopic] Stat Lab 06/04/24 22:44 Results Urine Culture Stat Micro 06/04/24 19:17 Received Medical Decision Narrative: In summary patient is a 29-year-old female who presents to the emergency department for evaluation of bilateral low back pain and abdominal pain. Patient is initially slightly hypotensive at 105/58 and tachycardic with a rate of 100 and sinus tachycardia on the bedside monitor breathing 18 times a minute satting at 100% on room air upon arrival, and afebrile at 90.1. Physical exam is remarkable for clear breath sounds with no increased work of breathing, negative CVA tenderness to percussion on the right positive on the left and abdominal exam reveals slight tenderness in the left abdomen but no rebound no guarding no rigidity no suprapubic tenderness to palpation and normal bowel sounds.. Differential diagnosis includes urinary tract infection versus kidney stone versus pyelonephritis versus diverticulitis versus endometriosis versus gastroenteritis versus constipation etc. Initial workup will be conducted with hematologic labs CT scan abdomen pelvis urinalysis with microscopic. Initial interventions include Tylenol and Toradol for now. Initial workup ordered and pending at the time of handoff to Dr. Chisholm at 2200 hrs. <Amari Gallego MD - Last Filed: 06/04/24 23:15> Vital Signs: 06/04/24 19:19 06/04/24 20:08 Temperature 98.1 F 97.6 F Temperature Source Oral Oral Pulse Rate [Left Radial] 100 H 75 Respiratory Rate 18 18 Blood Pressure [Left Arm] 105/58 L 120/66 Blood Pressure Mean [Left Arm] 73 84 Blood Pressure Source [Left Arm] Automatic Cuff Blood Pressure Position [Left Arm] Supine 02 Sat by Pulse Oximetry 100 100 Oxygen Delivery Method Room Air Lab Data Lab Results 06/04/24 19:21: Urine Color Yellow, Urine Appearance Cloudy, Urine pH 5.5, Ur Specific [place] 1.030, Urine Protein Negative, Urine Glucose (UA) Negative, Urine Ketones Negative, Urine Blood 4+, Urine Nitrate Negative, Urine Bilirubin Negative, Urine Urobilinogen 0.2, Ur Leukocyte Esterase 1+ A, Tst Clinic Negative 06/04/24 21:20: WBC 6.8, RBC 3.99 L, Hgb 12.5, Hct 37.4, MCV 93.7, MCH 31.3 H, MCHC 33.4, RDW 12.2, Plt Count 330, MPV 11.1 H, Neut % (Auto) 60.7, Lymph % (Auto) 29.7, [place] % (Auto) 7.9, Eos % (Auto) 0.7, Baso % (Auto) 0.7, Neut # (Auto) 4.1, Lymph # (Auto) 2.0, [place] # (Auto) 0.5, Eos # (Auto) 0.1, Baso # (Auto) 0.1, Sodium 137, Potassium 3.5, Chloride 101, Carbon Dioxide 28, Anion Gap 11.5, BUN 12, Creatinine 0.50 L, Estimated Creat Clear 173, Estimated GFR 147, Est GFR ( Amer) 178, Glucose 74, Calcium 9.4, Total Bilirubin 0.3, AST 28, ALT 24, Alkaline Phosphatase 65, Total Protein 7.6, Albumin 4.5, Globulin 3.1, Albumin/Globulin Ratio 1.5 06/04/24 22:44: Urine Color Yellow, Urine Appearance Clear, Urine pH 5.0, Ur Specific [place] 1.010, Urine Protein Negative, Urine Glucose (UA) Negative, Urine Ketones 1+, Urine Blood Negative, Urine Nitrate Negative, Urine Bilirubin Negative, Urine Urobilinogen 0.2, Ur Leukocyte Esterase Negative Orders (Tests/Meds): ED MEDICATIONS Discontinued Medications Generic Name Dose Route Start Last Admin Trade Name Freq PRN Reason Stop Dose Admin Acetaminophen 1,000 mg 06/04/24 21:27 Acetaminophen 500mg Tab PO 06/04/24 21:28 ONCE ONE Iopamidol 75 ml 06/04/24 21:24 06/04/24 21:25 Iopamidol-370 (76%);100ml Bottle IV 06/04/24 21:25 75 ml ONCE ONE Administration Ketorolac Tromethamine 15 mg 06/04/24 20:54 06/04/24 21:13 Ketorolac 30mg/Ml Vial IV 06/04/24 20:55 15 mg ONCE ONE Administration Ketorolac Tromethamine 15 mg 06/04/24 21:27 Ketorolac 30mg/Ml Vial IV 06/04/24 21:28 ONCE ONE Methocarbamol 500 mg 06/04/24 21:27 Methocarbamol 500mg Tablet PO 06/04/24 21:28 ONCE ONE Sodium Chloride 10 ml 06/04/24 21:24 06/04/24 21:25 Sodium Chloride 0.9% 10ml Syr (Rad Only) IV 06/04/24 21:25 10 ml ONCE ONE Administration ORDERS Category Date Time Status CT abdomen pelvis w con Stat Cat Scan 06/04/24 20:54 Completed CBC w/Auto Diff [Complete Blood Count Auto Diff] Stat Lab 06/04/24 21:20 Completed CMP [Comprehensive Metabolic Panel] Stat Lab 06/04/24 21:20 Completed UA [Urinalysis and Microscopic] Stat Lab 06/04/24 22:44 Results Urine Culture Stat Micro 06/04/24 19:17 Received Medical Decision Narrative: In summary patient is a 29-year-old female who presents to the emergency department for evaluation of bilateral low back pain and abdominal pain. Patient is initially slightly hypotensive at 105/58 and tachycardic with a rate of 100 and sinus tachycardia on the bedside monitor breathing 18 times a minute satting at 100% on room air upon arrival, and afebrile at 90.1. Physical exam is remarkable for clear breath sounds with no increased work of breathing, negative CVA tenderness to percussion on the right positive on the left and abdominal exam reveals slight tenderness in the left abdomen but no rebound no guarding no rigidity no suprapubic tenderness to palpation and normal bowel sounds.. Differential diagnosis includes urinary tract infection versus kidney stone versus pyelonephritis versus diverticulitis versus endometriosis versus gastroenteritis versus constipation etc. Initial workup will be conducted with hematologic labs CT scan abdomen pelvis urinalysis with microscopic. Initial interventions include Tylenol and Toradol for now. Initial workup ordered and pending at the time of handoff to Dr. Chisholm at 2200 hrs. I was consulted by the SANTI, and we discussed the complexity of the problems being addressed. I approved the treatment and management plan for this patient's care in the Emergency Department, thus performing a substantive portion of the medical decision making. Urine sent. This was negative on independent interpretation as well. Because patient at baseline without signs or symptoms of clinical decompensation, deemed appropriate for discharge. Results were relayed to patient who voiced understanding and were agreeable to outpatient management and follow up. I discussed my clinical impression with patient and answered all questions. At this time, the evidence for any other entities in the differential is insufficient to warrant any further testing or ED observation. This was explained as well. Advisory was given that persistent or worsening symptoms require further evaluation. I confirmed the understanding of this discussion. Amari Gallego MD Critical Care <CRISTIN Miranda - Last Filed: 06/04/24 21:51> Critical Care Time Critical Care Time: No
--- NOTE | 2024-06-04 20:54 | CT_ITS ---
PROCEDURE INFORMATION: Exam: CT Abdomen And Pelvis With Contrast Exam date and time: 06/04/2024 9:23 PM Age: 29 years old Clinical indication: Abdominal pain; Generalized; Additional info: Abdominal and flank pain TECHNIQUE: Imaging protocol: Computed tomography of the abdomen and pelvis with contrast. Radiation optimization: All CT scans at this facility use at least one of these dose optimization techniques: automated exposure control; mA and/or kV adjustment per patient size (includes targeted exams where dose is matched to clinical indication); or iterative reconstruction. Contrast material: ISOVUE; Contrast volume: 75 ml; Contrast route: IV; COMPARISON: US OB /MATERNAL DETAIL 03/30/2019 12:55 PM FINDINGS: Liver: Hypoattenuating circumscribed cystic structure within the right hepatic lobe favors benign hepatic cyst measuring 6.8 mm. Gallbladder and biliary ducts: There are surgical clips within the gallbladder fossa. Pancreas: Normal. No ductal dilation. Spleen: Multiple benign-appearing calcific densities of the spleen. Adrenal glands: Normal. No mass. Kidneys and ureters: Normal. No hydronephrosis. Stomach and bowel: Postsurgical changes compatible with gastric sleeve bariatric surgery with chain suture at the greater curvature. Appendix: No evidence of appendicitis. Intraperitoneal space: Low volume physiologic fluid in the posterior cul-de-sac. Vasculature: Unremarkable. No abdominal aortic aneurysm. Lymph nodes: Unremarkable. No enlarged lymph nodes. Urinary bladder: Unremarkable as visualized. Reproductive: Unremarkable as visualized. Bones/joints: Unremarkable. No acute fracture. Soft tissues: Normal. IMPRESSION: No acute findings.
[2024-06-04] MEDS: KETOROLAC 30MG/ML VIAL 15 MG IV (21:13)
[2024-06-04] MEDS: SODIUM CHLORIDE 0.9% 10ML SYR (RAD ONLY) 10 ML IV (21:25)
[2024-06-04] MEDS: IOPAMIDOL-370 (76%);100ML BOTTLE 75 ML IV (21:25)
[2024-06-04 22:02] LABS: Basophils # 0.1 K/mm3 (0-0.2); Basophils % 0.7 % (0.1-2.0); Eosinophils # 0.1 K/mm3 (0.0-0.4); Eosinophils % 0.7 % (0.1-12.0); Hematocrit 37.4 % (37.0-47.0); Hemoglobin 12.5 g/dL (12.2-16.2); Lymphocytes % 29.7 % (10-50); Mean Corpuscular HGB Conc 33.4 g/dL (31.8-35.4); Mean Corpuscular Hemoglobin 31.3 pg (27.0-31.2); Mean Corpuscular Volume 93.7 fl (81-99); Mean Platelet Volume 11.1 fl (7.4-10.4); Monocytes # 0.5 K/mm3 (0.1-1.0); Monocytes % 7.9 % (1.7-9.3); Neutrophils # 4.1 K/mm3 (1.8-7.8); Neutrophils % 60.7 % (37.0-80.0); Platelet Count 330 K/mm3 (142-424); Red Blood Count 3.99 M/mm3 (4.20-5.40); Red Cell Distribution Width 12.2 % (11.5-17.5); White Blood Count 6.8 K/mm3 (4.8-10.8)
[2024-06-04 22:03] LABS: Albumin Level 4.5 g/dl (3.5-5.0); Chloride 101 mmol/L (98-107); Sodium 137 mmol/L (136-145)
[2024-06-04 22:04] LABS: Potassium 3.5 mmoL/L (3.5-5.1)
[2024-06-04 22:06] LABS: Alanine Aminotransferase 24 U/L (12-78); Albumin/Globulin Ratio 1.5 (1.1-1.8); Alkaline Phosphatase 65 U/L (38-126); Anion Gap 11.5 mEq/L (5-15); Aspartate Amino Transferase 28 U/L (14-36); Bilirubin,Total 0.3 mg/dl (0.2-1.3); Blood Urea Nitrogen 12 mg/dl (7-17); Carbon Dioxide 28 mmol/L (22.0-30.0); Creatinine Clearance Estimated 173 mL/min (50-200); Estimated Glomerular Filt Rate 147 ml/min (>60); GFR (African American) 178 ML/MIN (>60); Globulin 3.1 g/dL (1.3-3.2); Total Protein,Serum 7.6 g/dl (6.3-8.2)
[2024-06-04 22:07] LABS: Calcium 9.4 mg/dl (8.4-10.2); Glucose 74 mg/dl (74-100)
[2024-06-04 22:47] LABS: Microscopic, Urine URINE MICROSCOPIC (MICROSCOPIC)
[2024-06-04 22:56] LABS: Appearance,Urine CLEAR (Clear); Bilirubin,Urine Negative (Negative); Blood, Urine Negative (Negative); Color,Urine YELLOW (Yellow); Glucose,Urine (UA) Negative (Negative); Ketones,Urine 1+ (Negative); Leukocyte Esterase,Urine Negative (Negative); Nitrate,Urine Negative (Negative); Protein,Urine Negative (Negative); Urobilinogen,Urine 0.2 EU/dl (0.2)
[2024-06-04 23:13] VITALS: BP 112/70; PULSE 75; RESP 18; TEMP 36.8; O2SAT 100
[2024-06-04 23:23] LABS: Bacteria,Urine 1+ /lpf
== END 2024-06-04 23:30 | disposition home or self-care (01) ==
LOC: UTC 20:05 → ER 20:07
PROVIDERS: Nurse Practitioner Family; Physician Assistant; Emergency Provider Emergency Medicine; PCP Family Medicine
DX: R10.31 Right lower quadrant pain (principal); M54.50 Low back pain, unspecified; R63.8 Other symptoms and signs concerning food and fluid intake
CPT/HCPCS: 74177; 80053; 81001; 81003; 81025; 85025; 87086; 96374; 99285; J1885; Q9967

== ENCOUNTER 2024-07-31 12:33 | Outpatient (CLI) | payer BC, OTHER, SELFPAY ==
--- NOTE | 2024-07-31 12:58 | US_ITS ---
PROCEDURE: US TRANSVAGINAL CLINICAL INDICATION: abdominal pain COMPARISON: CT CT ABDOMEN PELVIS W CON from 06/04/2024 FINDINGS: Transvaginal sonographic images of the pelvis were obtained. UTERUS: 8.8 cm x 5.8 cmx 4.8 cm anteverted with a combined endometrial thickness of 11.6mm. The endometrium is homogeneous. A scar is seen. LEFT OVARY: [id number] with a volume of 12.9ml. There appears to be a collapsing corpus luteum measuring 1.2 cm x 1.2 cm x 1.5 cm There are multiple small follicles. RIGHT OVARY: 2cmx [id number] with a volume of 2.4ml. There are multiple small follicles. Both ovaries are seen and appear normal. Doppler flow to both ovaries are seen. There is a small amount of fluid in the cul-de-sac. IMPRESSION: 1. Anteverted uterus normal in shape and size. The endometrium appears normal and homogeneous. 2. Both ovaries are seen and contain multiple small follicles. There is a collapsing corpus luteum on the left ovary. 3. There is a small amount of fluid in the cul-de-sac. Could be physiologic or inflammatory. Dictated by: Wai Christensen MD 07/31/2024 14:14 Wai Christensen MD in OV 07/31/2024 14:14
== END 2024-07-31 23:59 | disposition home or self-care (01) ==
LOC: RAD 12:34
PROVIDERS: PCP Family Medicine; Visit Provider Family Medicine
DX: N93.8 Other specified abnormal uterine and vaginal bleeding (principal); R10.9 Unspecified abdominal pain
CPT/HCPCS: 76830

== ENCOUNTER 2024-08-02 16:44 | Outpatient (CLI) | payer BC, OTHER, SELFPAY ==
[2024-08-02 20:31] LABS: 25-OH Vitamin D, Total 42.8 ng/mL (30-100)
[2024-08-04 10:10] LABS: FSH 4.3 mIU/mL (.); Progesterone 8.4 ng/mL (.)
[2024-08-07 16:18] LABS: Estrogen 183 pg/mL (.)
== END 2024-08-02 23:59 | disposition home or self-care (01) ==
LOC: LAB.DROPOF 16:45
PROVIDERS: PCP Family Medicine; Visit Provider Family Medicine
DX: N93.9 Abnormal uterine and vaginal bleeding, unspecified (principal); E55.9 Vitamin D deficiency, unspecified
CPT/HCPCS: 82306; 82672; 83001; 83002; 84144